=== PATIENT | female | born 1955 | race Caucasian/White ===

== ENCOUNTER → 2017-01-03 | Outpatient (CLI) | payer BC | LOC: MW.CHPM 12:56 | PROVIDERS: ATTEND Anesthesiology | DX: Z51.81 Encounter for therapeutic drug level monitoring (principal); Z79.891 Long term (current) use of opiate analgesic | CPT/HCPCS: 80305 ==

== ENCOUNTER → 2017-01-04 | Outpatient (CLI) | payer BC ==
--- NOTE | 2017-01-04 17:02 | CR ---
EXAMINATION: Cervical spine HISTORY: Pain COMPARISON: None TECHNIQUE: AP and lateral views obtained FINDINGS: There is straightening of the normal cervical lordosis, likely positional. Moderate osteop hyte formation is noted most prominent from C4 to C7. No fracture or acute osseous abnormality. The prevertebral soft tissues appear normal. IMPRESSION: Degenerative changes without acute findings.
== END ==
LOC: MW.DI 14:49 → MW.CHPM 14:49
PROVIDERS: ATTEND Anesthesiology
DX: M54.2 Cervicalgia (principal)
CPT/HCPCS: 72040; 72040-26

== ENCOUNTER → 2017-01-17 | Outpatient (CLI) | payer BC ==
--- NOTE | 2017-01-20 14:49 | MR ---
EXAM DATE: 01/17/17 PATIENT'S AGE: 61 Patient: SELINA TRACY Facility: [place], [place] Site . Site : 1955 Study: MRI Spine Thoracic [id number] 2:57:05 PM Ordering Physician: Estela Michaud Final Report: Indication: 61-year-old female with chronic back pain. Technique: Sagittal T1, sagittal and axial T2 and sagittal STIR images are obtained. Findings: The alignment of thoracic spine is within normal limits. No evidence of compression fracture. Degenerative disc changes in the lower cervical and lower thoracic spine are incidentally noted. Thoracic spinal cord appears normal in morphology and signal intensity and no evidence of an intradural or extradural mass. Incidental degenerative disc bulging at the C5-6, C6-7 and C7-T1 levels. In the lower thoracic spine at T9-10 there is broad posterior annular bulge without stenosis of the spinal canal or neural foramen. At T10-11 mild posterior disk bulging and mild facet arthropathy without stenosis of the spinal canal or neural foramen. Impression: 1. No compression fractures or paraspinal mass nor evidence of intradural pathology. 2. Incidental degenerative disk and endplate changes of the lower thoracic spine and also a lower cervical spine are noted. No high-grade stenosis or of the thoracic spine. Dictated by Jef Balbuena MD @ Jan 17 2017 3:51PM (Electronic Signature) Report Signed by Proxy and Original Signed Document filed in the Medical Record. IZZY
--- NOTE | 2017-01-20 14:50 | MR ---
EXAM DATE: 01/17/17 PATIENT'S AGE: 61 Patient: SELINA TRACY Facility: [place], [place] Site . Site : 1955 Study: MRI Spine Lumbar [id number]/13/2017 3:31:28 PM Ordering Physician: Estela Michaud Final Report: Indication: 61-year-old female with chronic low back pain. Technique: Sagittal and axial T1, sagittal and axial T2 and sagittal STIR images are obtained. Findings: Alignment of the lumbar spine within normal limits. There is no acute compression fracture. There is no paraspinal or epidural mass or hematoma. The conus medullaris appears normal and terminates normally at the L1 level. There is no disk herniation or stenosis at T11-12, T12-L1 or L1-. At L2-3 there is degenerative narrowing of the disc space with circumferential disk bulge and marginal osteophyte formation and bilateral facet arthropathy. There is resultant mild to moderate central canal spinal stenosis and there is moderate right-sided mild left side neural foraminal narrowing. There is some associated impingement of the exiting right L2 nerve root within the neural foramen. At L3-4 degenerative disc desiccation. Mild facet arthropathy no evidence of disc herniation or stenosis the spinal canal or neural foramen. At L4-5 degenerative disk desiccation. Minor annular bulging moderate bilateral facet arthropathy with bilateral facet joint effusions no evidence of stenosis of the spinal canal. In mild left-sided neural foraminal narrowing. At L5-S1 and no evidence of disc herniation or stenosis the spinal canal or neural foramen. Bilateral facet arthropathy. Impression: 1. At L2-3 there is mild to moderate central canal stenosis and right greater than left neural foraminal narrowing due to advanced disk degeneration and moderate facet arthropathy. 2. Some impingement of the exiting right L2 nerve root within the neural foramen. 3. Bilateral facet arthropathy most prominent at L4-5 and to a lesser degree L3- 4 and L2-3. Dictated by Jef Balbuena MD @ Jan 17 2017 3:51PM (Electronic Signature) Report Signed by Proxy and Original Signed Document filed in the Medical Record. IZZY
== END | disposition home or self-care (01) ==
LOC: MW.MRI 13:58
PROVIDERS: ATTEND Anesthesiology
DX: M54.5 Low back pain (principal); M19.90 Unspecified osteoarthritis, unspecified site; G89.4 Chronic pain syndrome; G57.91 Unspecified mononeuropathy of right lower limb; M53.3 Sacrococcygeal disorders, not elsewhere classified; M79.1 Myalgia; M48.06 Spinal stenosis, lumbar region; M99.83 Other biomechanical lesions of lumbar region; M51.36 Other intervertebral disc degeneration, lumbar region; M46.97 Unspecified inflammatory spondylopathy, lumbosacral region; M51.34 Other intervertebral disc degeneration, thoracic region; M50.30 Other cervical disc degeneration, unspecified cervical region
CPT/HCPCS: 72146; 72146-26; 72148; 72148-26

== ENCOUNTER 2017-01-27 12:00 | Day surgery (SDC) | payer BC ==
[2017-01-27] MEDS ORDERED: Betamethasone Acetate/Betamethasone Sod Phosphate 30 MG/5 ML MDV ONE (12:26)
[2017-01-27] MEDS ORDERED: Ropivacaine 0.5% 5 MG/ML 30 ML SDV ONE (12:26)
[2017-01-27] MEDS ORDERED: Iopamidol 408 MG/ML 50 ML SDV ONE (12:26)
[2017-01-27] MEDS ORDERED: Lidocaine 2% 5 ML SDV ONE (12:26)
--- NOTE | 2017-01-28 12:15 | OR ---
SURGEON: Keily Palmer D.O. DATE OF PROCEDURE: 01/27/2017 OR STAFF PRESENT: 1. Mary Azul RN. 2. Melanie Cartwright RN. WOUND CLASSIFICATION: I. PREOPERATIVE DIAGNOSES: 1. Multilevel degenerative disk disease. 2. Lumbar spondylosis. 3. Lumbar radiculopathy. POSTOPERATIVE DIAGNOSES: 1. Multilevel degenerative disk disease. 2. Lumbar spondylosis. 3. Lumbar radiculopathy. PROCEDURE PERFORMED: 1. Right transforaminal epidural steroid injection at L2-3. 2. Fluoroscopic guidance for needle placement. 3. Local with oral Valium for sedation. SCREENING QUESTIONS: The patient answered "no" to all of the following questions: 1. Are you allergic to iodine, Betadine or latex? 2. Do you have a bleeding disorder? 3. Do you have any joint replacements, heart valve replacements, or a pacemaker? 4. Are you allergic to anti-inflammatories or blood thinners? 5. Do you have any current local or systemic infections? MEDICAL NECESSITY: This is a patient with a history of chronic low back pain and lower extremity radicular pain in the above dermatomal pattern that comes in for the above diagnostic and therapeutic procedure. Pertinent positives and negatives for this suspected disease process along with the diagnostic findings and testing are in the patient's history and physical exam. The most salient feature includes radicular pain in the above dermatomal pattern. The patient had failed attempts at conservative therapy including physical therapy, nonsteroidal anti- inflammatory drugs, and other medications. No contraindications to perform this procedure including medical, no bleeding disorders or infections, no psychological, no antisocial personality disorder or active addiction disorder. There are no work-related issues, and, in general, the patient does not have any history of multiple prior interventions, surgeries or nerve blocks which have failed to return the patient to function. The patient's other symptoms to be treated include numbness, paresthesia, dysesthesia or hypoesthesia referred into the left lower extremity or any weakness in the involved myotome. This procedure is being performed in accordance with national guidelines as written by the [employer] Sp[employer] Intervention Society (DAV). DESCRIPTION OF PROCEDURE: The patient had the procedure thoroughly explained including risks, benefits and alternatives. Consent was signed in my clinic indicating understanding and willingness to proceed. The patient presented to [facility] where the patient was escorted to the dressing room to disrobe and change into a hospital gown. Preoperative vital signs were taken and stable. The patient reported that Valium was taken prior to the procedure. The patient was brought to the procedure room and placed in the prone position on the table. A pillow was placed under the abdomen in order to flatten the lumbar lordosis. The back was prepped with ChloraPrep and sterilely draped. All personnel in the operating room were dressed in appropriate attire including surgical scrubs, head and shoe covers. This was to ensure sterility while in the treatment room. During the time fluoroscopy was in use, all personnel in the operating room wore lead hansen with thyroid collars. Sterile technique was used during the procedure. The fluoroscope was placed for the lumbar transforaminal epidural steroid injection. There was no sign of infection at the skin site for needle insertion. The skin was anesthetized with 2% lidocaine with a 27 gauge 1-1/2 inch needle. Then a 22 gauge 3-1/2 inch spinal needle, advanced to the foramen. Under direct fluoroscopic guidance needle position was verified in three views; AP, oblique and lateral, with 0.2 cubic centimeters increments of Isovue-200 dye. No intravascular flow pattern was observed under live fluoroscopy. A total of 12 milligrams of Celestone was slowly injected after negative aspiration of heme, cerebrospinal fluid and no paresthesias were noted. The needle was cleared prior to removal from the skin. No adverse reactions were noted. The patient was brought to the recovery room awake and in good condition by my staff. The patient was monitored and discharge instructions were given after a brief stay in the recovery area. Both oral and written discharge and follow up instructions were given. The patient will follow up in the clinic in 3-4 weeks post procedure to evaluate the efficacy. The patient verbalized understanding including understanding of those signs and symptoms that would require emergency care and knows how to contact the office if there are any problems or questions in the meantime. PREOPERATIVE PAIN: 7/10. POSTOPERATIVE PAIN: 0/10. FOLLOWUP: Follow up in the Pain Clinic in 3 weeks. HOGJUDIT / CHRISTINA /[id number]
== END 2017-01-27 14:00 | disposition home or self-care (01) ==
LOC: MW.SDS 12:00
PROVIDERS: ATTEND Anesthesiology
PROC: 3E0R3BZ Introduction of Anesthetic Agent into Spinal Canal, Percutaneous Approach (ICD-10-PCS; principal; 2017-01-27)
DX: M51.16 Intervertebral disc disorders with radiculopathy, lumbar region (principal); M47.896 Other spondylosis, lumbar region; M19.90 Unspecified osteoarthritis, unspecified site; J45.909 Unspecified asthma, uncomplicated; M17.11 Unilateral primary osteoarthritis, right knee; E11.9 Type 2 diabetes mellitus without complications; M10.9 Gout, unspecified; I10 Essential (primary) hypertension; J44.9 Chronic obstructive pulmonary disease, unspecified; F32.9 Major depressive disorder, single episode, unspecified; M79.1 Myalgia; G47.33 Obstructive sleep apnea (adult) (pediatric); Z87.442 Personal history of urinary calculi; Z87.440 Personal history of urinary (tract) infections; Z87.891 Personal history of nicotine dependence; Z91.013 Allergy to seafood; Z79.891 Long term (current) use of opiate analgesic; Z79.4 Long term (current) use of insulin; Z79.84 Long term (current) use of oral hypoglycemic drugs; Z79.82 Long term (current) use of aspirin; Z79.899 Other long term (current) drug therapy; Z96.651 Presence of right artificial knee joint; Z90.49 Acquired absence of other specified parts of digestive tract; Z90.710 Acquired absence of both cervix and uterus; Z90.89 Acquired absence of other organs; Z98.890 Other specified postprocedural states
CPT/HCPCS: 64483; 64484; J0702; J2795; Q9966

== ENCOUNTER 2017-02-16 10:55 | Emergency (ER) | payer BC ==
[2017-02-16] MEDS ORDERED: Sodium Chloride 0.9% 10 ML Syringe FLUSH PRN (11:00)
[2017-02-16] MEDS ORDERED: Sodium Chloride 0.9% 2.5 ML Syringe FLUSH PRN (11:00)
--- NOTE | 2017-02-16 11:27 | EDM.PDOC ---
ED HISTORY OF PRESENT ILLNESS - General Chief Complaint: Chest Pain Stated Complaint: CHEST PAIN Time Seen by Provider: 02/16/17 10:56 Source of Information: Reports: Patient History Limitations: Reports: No limitations - History of Present Illness INITIAL COMMENTS - FREE TEXT/NARRATIVE: History of present illness: [] Patient awoke with anterior right-sided chest pain that is sharp she states "it feels like pleurisy but not". It is not related to breathing and it does come in waves as severe. She states she feels like it's hard to breathe when it happens it is overall not short of breath. She has a history of LGL but has not had any problems. Patient had a right knee replacement last October has been taking aspirin she noticed knee pain the first time today. Review of systems: As per history of present illness and below otherwise all systems reviewed and negative. Past medical history: As per history of present illness and as reviewed below otherwise noncontributory. Surgical history: As per history of present illness and as reviewed below otherwise noncontributory. Social history: No reported history of drug or alcohol abuse. Family history: As per history of present illness and as reviewed below otherwise noncontributory. Physical exam: General: Well developed, well nourished in NAD HEENT: Atraumatic, normocephalic, pupils reactive, negative for conjunctival pallor or scleral icterus, mucous membranes moist, throat clear, neck supple, nontender, trachea midline. Lungs: Clear to auscultation, breath sounds equal bilaterally, chest nontender. Heart: S1S2, regular, negative for clicks, rubs, or JVD. Abdomen: Soft, nondistended, nontender. Negative for masses or hepatosplenomegaly. Negative for costovertebral tenderness. Pelvis: Stable nontender. Genitourinary: Deferred. Rectal: Deferred. Extremities: Atraumatic, negative for cords or calf pain. Neurovascular unremarkable. Neuro: Awake, alert, oriented. Cranial nerves II through XII unremarkable. Cerebellum unremarkable. Motor and sensory unremarkable throughout. Exam nonfocal. Diagnostics: [] Labs and imaging were done she negative and PE was ruled out Therapeutics: [] She declined any pain medicine Impression: [] Pleuritic chest pain Plan: [] Continue aspirin followup with PMD return if symptoms worsen Definitive disposition and diagnosis as appropriate pending reevaluation and review of above. - Related Data Allergies/ADRs: Allergies Allergy/AdvReac Type Severity Reaction Status Date / Time hydrocodone Allergy Headache Verified 02/16/17 11:10 shellfish derived Allergy Itching Verified 02/16/17 11:10 tramadol Allergy Headache Verified 02/16/17 11:10 Home Meds: Home Meds Liraglutide [Victoza] 3 mcg SQ BRK 05/07/14 [History] Lisinopril [Zestril] 20 mg PO BEDTIME 05/07/14 [History] Omeprazole [Prilosec] 20 mg PO ACBREAKFAST 05/07/14 [History] metFORMIN HCl [Metformin HCl] 1,000 mg PO BID 05/07/14 [History] Albuterol [Ventolin HFA] 2 puff INH ASDIRECTED PRN 09/24/14 [History] Canagliflozin [Invokana] 300 mg PO ACBREAKFAST 08/29/15 [History] Magnesium Glycinate [Mag Glycinate] 100 mg PO DAILY 08/29/15 [History] Methocarbamol 750 mg PO TID PRN 08/29/15 [History] Mecobal/Levomefolat Ca/B6 Phos [Foltanx Tablet] 1 tab PO BID 09/01/15 [History] Aspirin 81 mg PO DAILY 06/16/16 [History] Ketamine [Ketalar] 50 mg IV ASDIRECTED PRN 06/16/16 [History] Diclofenac Epolamine [Flector] 1 each TD ASDIRECTED PRN 02/16/17 [History] Fluticasone/Salmeterol [Advair Diskus 250-50] 1 puff INH BID 02/16/17 [History] Glucosamine/D3/Boswellia Yulissa [Osteo Bi-Flex Caplet] 1 each PO BID 02/16/17 [ History] Lactobacillus Rhamnosus R0011 [Probiotic Digestive Care] 1 each PO DAILY [History] Melatonin 3 mg PO BEDTIME 02/16/17 [History] Multivit-Min/FA/Lycopene/Lut [Sentry Senior Tablet] 1 each PO DAILY 02/16/17 [ History] Naloxegol Oxalate [Movantik] 25 mg PO ACBREAKFAST 02/16/17 [History] Pregabalin [Lyrica] 150 mg PO BID 02/16/17 [History] buPROPion [Wellbutrin XL] 150 mg PO DAILY 02/16/17 [History] oxyCODONE 5 mg PO TID PRN 02/16/17 [History] oxyCODONE ER [OxyCONTIN] 10 mg PO BEDTIME 02/16/17 [History] Past Medical History - Past Health History Medical/Surgical History: Denies Medical/Surgical History Other HEENT History: Some diminished hearing 'especially if background noise' Cardiovascular History: Reports: Hypertension, SOB on exertion Respiratory History: Reports: SOB Gastrointestinal History: Reports: GERD Other Genitourinary History: "Crystals in urine at times" Other Musculoskeletal History: 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 Lots of muscle spasms and take Magnesum supplement to help Other Neuro History: hx: Right Carpal Tunnel Release Psychiatric History: Reports: Depression Endocrine/Metabolic History: Reports: Diabetes, type II Other Hematologic History: TAke supplements as 'think I am 'B' deficient" And take Magnesium as Chilo and Dr. Palmer recommended due to Muscle spasms, "Trouble with Hysterectomy, had 7 blood transfusions" Immunologic History: Reports: None Oncologic (Cancer) History: Reports: None - Infectious Disease History Infectious Disease History: Reports: None - Past Surgical History Head Surgeries/Procedures: Reports: None GI Surgical History: Reports: Cholecystectomy Other GI Surgeries/Procedures: Open Cholecystectomy Other Female Surgeries/Procedures: Several D&C's, hx: Endometriosis, Several Uterine ablations, Hysterectomy with large blood loose, believe received 7 transfusions Other Musculoskeletal Surgeries/Procedures:: Left knee meniscus repair Social & Family History - Family History Family Medical History: Noncontributory - Tobacco Use Smoking Status *Q: Never Smoker Years of Tobacco use: 5 Used Tobacco, but Quit: Yes Second Hand Smoke Exposure: No - Alcohol Use Days Per Week of Alcohol Use: 0 Number of Drinks Per Day: 0 Total Drinks Per Week: 0 - Recreational Drug Use Recreational Drug Use: No Drug Use in Last 12 Months: No ED ROS GENERAL - Review of Systems Review Of Systems: See Below (See history of present illness) ED EXAM, GENERAL - Physical Exam Exam: See Below (See history of present illness) Course - Vital Signs Last Recorded V/S: Last Vital Signs Temp 36.7 C 02/16/17 11:10 Pulse 87 02/16/17 12:25 Resp 16 02/16/17 12:25 BP 119/59 L 02/16/17 12:25 Pulse Ox 94 L 02/16/17 12:25 - Orders/Labs/Meds Orders: Active Orders 24 hr Category Date Time Status EKG 12 Lead [EKG Documentation Completion] [RC] STAT Care 02/16/17 11:08 Active Sodium Chloride 0.9% [Saline Flush] Med 02/16/17 11:00 Active 10 ml FLUSH ASDIRECTED PRN Sodium Chloride 0.9% [Saline Flush] Med 02/16/17 11:00 Active 2.5 ml FLUSH ASDIRECTED PRN Peripheral IV Insertion Adult [OM.PC] Stat Oth 02/16/17 11:01 Ordered Medication Orders Sodium Chloride (Saline Flush) 10 ml FLUSH ASDIRECTED PRN PRN Reason: Keep Vein Open Last Admin: 02/16/17 11:22 Dose: 10 ml Sodium Chloride (Saline Flush) 2.5 ml FLUSH ASDIRECTED PRN PRN Reason: Keep Vein Open Last Admin: 02/16/17 11:22 Dose: 2.5 ml Labs: Laboratory Tests 02/16/17 02/16/17 02/16/17 Range/Units 11:11 11:11 11:11 WBC 7.19 (4.0-11.0) K/uL RBC 4.54 (4.30-5.90) M/uL Hgb 13.6 (12.0-16.0) g/dL Hct 43.4 (36.0-46.0) % MCV 95.6 (80.0-98.0) fL MCH 30.0 (27.0-32.0) pg MCHC 31.3 (31.0-37.0) g/dL RDW Std Deviation 50.9 (28.0-62.0) fl RDW Coeff of Elida 15 (11.0-15.0) % Plt Count 281 (150-400) K/uL MPV 10.80 (7.40-12.00) fL Neut % (Auto) 55.4 (48.0-80.0) % Lymph % (Auto) 24.2 (16.0-40.0) % [place] % (Auto) 8.8 (0.0-15.0) % Eos % (Auto) 11.0 H (0.0-7.0) % Baso % (Auto) 0.6 (0.0-1.5) % Neut # (Auto) 4.0 (1.4-5.7) K/uL Lymph # (Auto) 1.7 (0.6-2.4) K/uL [place] # (Auto) 0.6 (0.0-0.8) K/uL Eos # (Auto) 0.8 H (0.0-0.7) K/uL Baso # (Auto) 0.0 (0.0-0.1) K/uL Nucleated RBC % 0.0 /100WBC Nucleated RBCs # 0 K/uL D-Dimer, Quantitative 2.85 H (0.0-0.52) mg/LFEU Sodium 142 (136-146) mmol/L Potassium 4.0 (3.5-5.1) mmol/L Chloride 105 (98-110) mmol/L Carbon Dioxide 25 (21-31) mmol/L BUN 16 (6.0-23.0) mg/dL Creatinine 0.8 (0.6-1.5) mg/dL Est Cr Clr Drug Dosing 67.29 mL/min Estimated GFR (MDRD) > 60.0 ml/min Glucose 193 H (60-110) mg/dL Calcium 9.4 (8.8-10.8) mg/dL Total Bilirubin 0.5 (0.1-1.5) mg/dL AST 19 (5-40) IU/L ALT 25 (8-54) IU/L Alkaline Phosphatase 84 (40-150) Troponin I (0.0-0.29) NG/ML Total Protein 6.9 (6.0-8.0) g/dL Albumin 4.0 (3.4-4.8) g/dL Globulin 2.9 (2.0-3.5) g/dL Albumin/Globulin Ratio 1.4 (1.3-2.8) 02/16/17 Range/Units 11:11 WBC (4.0-11.0) K/uL RBC (4.30-5.90) M/uL Hgb (12.0-16.0) g/dL Hct (36.0-46.0) % MCV (80.0-98.0) fL MCH (27.0-32.0) pg MCHC (31.0-37.0) g/dL RDW Std Deviation (28.0-62.0) fl RDW Coeff of Elida (11.0-15.0) % Plt Count (150-400) K/uL MPV (7.40-12.00) fL Neut % (Auto) (48.0-80.0) % Lymph % (Auto) (16.0-40.0) % [place] % (Auto) (0.0-15.0) % Eos % (Auto) (0.0-7.0) % Baso % (Auto) (0.0-1.5) % Neut # (Auto) (1.4-5.7) K/uL Lymph # (Auto) (0.6-2.4) K/uL [place] # (Auto) (0.0-0.8) K/uL Eos # (Auto) (0.0-0.7) K/uL Baso # (Auto) (0.0-0.1) K/uL Nucleated RBC % /100WBC Nucleated RBCs # K/uL D-Dimer, Quantitative (0.0-0.52) mg/LFEU Sodium (136-146) mmol/L Potassium (3.5-5.1) mmol/L Chloride (98-110) mmol/L Carbon Dioxide (21-31) mmol/L BUN (6.0-23.0) mg/dL Creatinine (0.6-1.5) mg/dL Est Cr Clr Drug Dosing mL/min Estimated GFR (MDRD) ml/min Glucose (60-110) mg/dL Calcium (8.8-10.8) mg/dL Total Bilirubin (0.1-1.5) mg/dL AST (5-40) IU/L ALT (8-54) IU/L Alkaline Phosphatase (40-150) Troponin I < 0.10 (0.0-0.29) NG/ML Total Protein (6.0-8.0) g/dL Albumin (3.4-4.8) g/dL Globulin (2.0-3.5) g/dL Albumin/Globulin Ratio (1.3-2.8) Meds: Medications Generic Name Dose Route Start Last Admin Trade Name Freq PRN Reason Stop Dose Admin Sodium Chloride 10 ml 02/16/17 11:00 02/16/17 11:22 Saline Flush FLUSH 10 ml ASDIRECTED PRN Administration Keep Vein Open Sodium Chloride 2.5 ml 02/16/17 11:00 02/16/17 11:22 Saline Flush FLUSH 2.5 ml ASDIRECTED PRN Administration Keep Vein Open Discontinued Medications Generic Name Dose Route Start Last Admin Trade Name Freq PRN Reason Stop Dose Admin Iopamidol 50 ml 02/16/17 12:37 02/16/17 12:40 Isovue Multipack-370 (76%) IVPUSH 02/16/17 12:38 50 ml ONETIME STA Administration Departure - Departure Time of Disposition: 13:33 Disposition: Home, Self-Care 01 Condition: good Clinical Impression: Pleuritic chest pain Forms: ED Department Discharge Additional Instructions: The following information is given to patients seen in the emergency department who are being discharged to home. This information is to outline your options for follow-up care. We provide all patients seen in our emergency department with a follow-up referral. The need for follow-up, as well as the timing and circumstances, are variable depending upon the specifics of your emergency department visit. If you don't have a primary care physician on staff, we will provide you with a referral. We always advise you to contact your personal physician following an emergency department visit to inform them of the circumstance of the visit and for follow-up with them and/or the need for any referrals to a consulting specialist. The emergency department will also refer you to a specialist when appropriate. This referral assures that you have the opportunity for follow-up care with a specialist. All of these measure are taken in an effort to provide you with optimal care, which includes your follow-up. Under all circumstances we always encourage you to contact your private physician who remains a resource for coordinating your care. When calling for follow-up care, please make the office aware that this follow-up is from your recent emergency room visit. If for any reason you are refused follow-up, please contact the [facility] Department at and asked to speak to the emergency department charge nurse. Continue aspirin [facility] [address] [place], [place] [id number] - My Orders Last 24 Hours: My Active Orders 02/16/17 11:00 Sodium Chloride 0.9% [Saline Flush] 10 ml FLUSH ASDIRECTED PRN Sodium Chloride 0.9% [Saline Flush] 2.5 ml FLUSH ASDIRECTED PRN 02/16/17 11:01 Peripheral IV Insertion Adult [OM.PC] Stat 02/16/17 11:08 EKG 12 Lead [EKG Documentation Completion] [RC] STAT - Assessment/Plan Last 24 Hours: My Active Orders 02/16/17 11:00 Sodium Chloride 0.9% [Saline Flush] 10 ml FLUSH ASDIRECTED PRN Sodium Chloride 0.9% [Saline Flush] 2.5 ml FLUSH ASDIRECTED PRN 02/16/17 11:01 Peripheral IV Insertion Adult [OM.PC] Stat 02/16/17 11:08 EKG 12 Lead [EKG Documentation Completion] [RC] STAT
[2017-02-16 11:57] LABS: CHLORIDE,CL 105 mmol/L (98-110); SODIUM,NA 142 mmol/L (136-146)
[2017-02-16] MEDS ORDERED: Iopamidol 755 MG/ML 500 ML Multipack Bottle IVPUSH STA (12:37)
--- NOTE | 2017-02-16 13:22 | CT ---
EXAMINATION: CTA chest HISTORY: Chest pain COMPARISON: None TECHNIQUE: Axial CT images obtained through the chest following the administration of 50 mL of Isovu e-370. Coronal and sagittal reconstructions obtained. FINDINGS: The lungs are clear without focal consolidation. No pleural effusion or pneumothorax. The heart is normal in size without a pericardial effusion. The thoracic aorta is normal in caliber. Marlyn n and central pulmonary veins are patent without evidence of a pulmonary embolism. The central airwa ys are clear. No mediastinal, hilar, or axillary lymphadenopathy. The central airways are clear. The visualized osseous structures appear normal. IMPRESSION: 1. No acute cardiopulmonary findings.
[2017-02-16 14:00] VITALS: BP 118/65
== END 2017-02-16 14:01 | disposition home or self-care (01) ==
LOC: MW.ED 10:55
DX: R07.81 Pleurodynia (principal); I10 Essential (primary) hypertension; K21.9 Gastro-esophageal reflux disease without esophagitis; M19.90 Unspecified osteoarthritis, unspecified site; E11.9 Type 2 diabetes mellitus without complications; F32.9 Major depressive disorder, single episode, unspecified; Z90.49 Acquired absence of other specified parts of digestive tract; Z79.899 Other long term (current) drug therapy; Z79.82 Long term (current) use of aspirin; Z79.84 Long term (current) use of oral hypoglycemic drugs; Z91.013 Allergy to seafood; Z88.5 Allergy status to narcotic agent; M54.5 Low back pain; M47.816 Spondylosis without myelopathy or radiculopathy, lumbar region
CPT/HCPCS: 36415; 71275; 72110; 80053; 84484; 85025; 85379; 93005; 99285; Q9967; 99284

== ENCOUNTER → 2017-02-16 | Outpatient (CLI) | payer BC ==
--- NOTE | 2017-02-16 17:19 | CR ---
EXAMINATION: Lumbar spine HISTORY: Low back pain COMPARISON: MRI dated 01/17/2017 TECHNIQUE: AP, lateral, flexion and extension images. FINDINGS: There is a trace anterolisthesis of L4 on L5. Moderate disc space narrowing is noted at L2 -L3. Bone mineralization is normal. There is mild anterolisthesis of L4 on L5 most notable with flex ion. Facet hypertrophy is noted. SI joints are symmetric. No fracture or acute osseous abnormality. IMPRESSION: Moderate degenerative changes noted within the lumbar spine without acute findings.
== END ==
LOC: MW.DI 14:17
PROVIDERS: ATTEND Neurological Surgery
DX: M54.5 Low back pain (principal); M47.816 Spondylosis without myelopathy or radiculopathy, lumbar region
CPT/HCPCS: 72110; 72110-26

== ENCOUNTER → 2017-02-17 | Outpatient (CLI) | payer BC | END | disposition home or self-care (01) | LOC: MW.CHPM 09:45 | PROVIDERS: ATTEND Anesthesiology | DX: Z51.81 Encounter for therapeutic drug level monitoring (principal); Z79.891 Long term (current) use of opiate analgesic | CPT/HCPCS: 80305 ==

== ENCOUNTER 2017-02-24 11:08 | Day surgery (SDC) | payer BC ==
[~2017-02-24 11:08] MED LIST: Betamethasone Acetate/Betamethasone Sod Phosphate 30 MG/5 ML MDV ONE; Iopamidol 408 MG/ML 50 ML SDV ONE; Lidocaine 2% 5 ML SDV ONE; Ropivacaine 0.5% 5 MG/ML 30 ML SDV ONE
--- NOTE | 2017-02-25 06:05 | OR ---
SURGEON: Keily Palmer D.O. DATE OF PROCEDURE: 02/24/2017 OR STAFF PRESENT: 1. Mary Hardy RN. 2. Comfort Gallagher RN. WOUND CLASSIFICATION: I. PREOPERATIVE DIAGNOSES: 1. Lumbar spondylosis. 2. Chronic low pain. 3. Lumbar spinal stenosis. 4. Lumbar spondylolisthesis. POSTOPERATIVE DIAGNOSES: 1. Lumbar spondylosis. 2. Chronic low pain. 3. Lumbar spinal stenosis. 4. Lumbar spondylolisthesis. PROCEDURE PERFORMED: 1. Bilateral L5 radiofrequency neurotomy. 2. Fluoroscopic guidance for needle placement. 3. Local with oral Valium for sedation. JOINTS FOR RADIOFREQUENCY ABLATION: L5-S1 zygapophyseal joint. SCREENING QUESTIONS: The patient answered "No" to all the followin. Are you allergic to iodine, Betadine or latex? 2. Do have a bleeding disorder? 3. Are you on any anti-inflammatories or blood thinners? 4. Do you have any current local or systemic infections? RESPONSE TO LAST PROCEDURE: The patient reports greater than 80-90% pain reduction lasting the duration of the previous diagnostic medial branch blocks. MEDICAL NECESSITY: This procedure is being performed in accordance with the national guidelines as written by the DAV, [employer]. Please see medical necessity note attached. DESCRIPTION OF PROCEDURE: The patient had the procedure thoroughly explained including all possible risks, benefits and alternatives. A consent was signed in my clinic indicating understanding and willingness to proceed. The patient presented to [facility] and was escorted to the dressing room to disrobe and change into a hospital gown. Preoperative vital signs were taken. The patient reported taking Valium 10 milligrams at home prior to the procedure. The patient was brought to the procedure room and placed in the prone position on the procedure room table. A pillow was placed under the hips in order to flatten the lumbar lordosis. The back was prepped with ChloraPrep times three and sterilely draped. All personnel in the operating room were dressed in appropriate attire including surgical scrubs, head and shoe covers. This was to ensure sterility while in the treatment room. During the time fluoroscopy was in use all personnel in the operating room wore lead hansen with thyroid collars. Sterile technique was used during the procedure. The skin overlying the target nerves were anesthetized with 2% Lidocaine Preservative-Free in a sterile 27-gauge 1.5 inch needle. The deep tissues were likewise infiltrated. Standard insulated radiofrequency probe needles with 10 millimeter active tips were inserted at the appropriate sites for the left L5 dorsal ramus nerves and right L5 dorsal ramus nerves for radiofrequency ablation. Proper placement was determined both fluoroscopically and with test stimulation at each primary site with 50 hertz for sensory and 2 hertz for motor stimulation. No radicular stimulation was identified and no distal motor activity was noted in the lower extremities. Radiofrequency denervation was performed at each site for 60 seconds at 80 degrees centigrade and repeated times two. The patient's nerves were numbed with a mixture of 12 milligrams of Celestone and 3 cubic centimeters of 2% Lidocaine and 3 cubic centimeters of 0.5% Ropivacaine. This was done for patient comfort prior to lesioning; 1 cubic centimeter total was injected at each site. Then the radiofrequency ablation needles were advanced under direct fluoroscopy and viewed in AP and oblique views. Each nerve was lesioned twice. The patient tolerated the procedure well and had no complications. The vital signs were stable during and after the procedure. The staff escorted the patient to the recovery room area and the patient was released in stable condition after a brief stay in the recovery room monitored by the nurse. The patient was given both oral and written discharge and follow up instructions. The patient understands and knows to contact the office if there are any questions or concerns in the meantime. The patient has an appointment to follow up in three weeks. JOSUE / CHRISTINA /[id number] IZZY
== END 2017-02-24 13:30 | disposition home or self-care (01) ==
LOC: MW.SDS 11:08
PROVIDERS: ATTEND Anesthesiology
DX: M47.896 Other spondylosis, lumbar region (principal); M48.06 Spinal stenosis, lumbar region; M43.16 Spondylolisthesis, lumbar region; M19.90 Unspecified osteoarthritis, unspecified site; J45.909 Unspecified asthma, uncomplicated; M17.11 Unilateral primary osteoarthritis, right knee; E11.9 Type 2 diabetes mellitus without complications; K21.9 Gastro-esophageal reflux disease without esophagitis; M10.9 Gout, unspecified; I10 Essential (primary) hypertension; M51.16 Intervertebral disc disorders with radiculopathy, lumbar region; M79.1 Myalgia; G89.4 Chronic pain syndrome; G47.33 Obstructive sleep apnea (adult) (pediatric); J44.9 Chronic obstructive pulmonary disease, unspecified; F41.9 Anxiety disorder, unspecified; F32.9 Major depressive disorder, single episode, unspecified; Z87.440 Personal history of urinary (tract) infections; Z87.442 Personal history of urinary calculi; Z87.891 Personal history of nicotine dependence; Z91.013 Allergy to seafood; Z79.82 Long term (current) use of aspirin; Z79.84 Long term (current) use of oral hypoglycemic drugs; Z79.4 Long term (current) use of insulin; Z79.891 Long term (current) use of opiate analgesic; Z79.899 Other long term (current) drug therapy; Z98.890 Other specified postprocedural states; Z90.49 Acquired absence of other specified parts of digestive tract; Z90.710 Acquired absence of both cervix and uterus
CPT/HCPCS: 64635; J0702; J2795; Q9966

== ENCOUNTER 2017-08-19 14:10 | Emergency (ER) | payer BC ==
[2017-08-19 14:28] VITALS: BP 137/74
[2017-08-19] MEDS ORDERED: LORazepam 2 MG/ML MDV IVPUSH ONE (14:38)
[2017-08-19] MEDS ORDERED: Sodium Chloride 0.9% 1,000 ML IV ONE (14:38)
[2017-08-19] MEDS ORDERED: Ondansetron 4 MG/2 ML SDV IVPUSH ONE (14:38)
--- NOTE | 2017-08-19 14:50 | EDM.PDOC ---
ED HPI GENERAL MEDICAL PROBLEM - General Chief Complaint: Neuro Symptoms/Deficits Stated Complaint: DIZZINESS Time Seen by Provider: 08/19/17 14:24 Source of Information: Reports: Patient History Limitations: Reports: No Limitations - History of Present Illness INITIAL COMMENTS - FREE TEXT/NARRATIVE: HISTORY AND PHYSICAL: History of present illness: Patient is a 62-year-old female presents to the emergency room today with complaints of dizziness and feeling of "detached arm and leg" on the right side. Patient reports that she saw Dr. Bowman yesterday for a cervical trigger point injection for pain management and headache management. She has a long-standing history of back problems which included multiple surgeries and interventions. Yesterday after receiving her injection, she was able to go home and felt well. She woke up this morning and started having a heaviness sensation to her right arm and leg, stating she is able to use it and she is fully functioning but "I just feel detached". No weakness, slurred speech or neurological deficits. States that "I feel like I'm having an anxiety attack and this is causing my symptoms. I've had a similar episode like this in the past where I felt dizzy and out of my body". Patient states that she does have a past medical history of anxiety and has taken an unknown medication for this in the past, but nothing within the last few years. Patient denies any headache , shortness breath, chest pain, nausea or vomiting. Patient is fully ambulatory and steady on her feet. Dizziness is described as feeling like the room is spinning. She states it improves when her eyes are closed. Denies any feeling of near syncope. No nausea , vomiting, or headache. Not associated with positional changes. Steady of her feet with ambulation. Review of systems: As per history of present illness and below otherwise all systems reviewed and negative. Past medical history: As per history of present illness and as reviewed below otherwise noncontributory. Surgical history: As per history of present illness and as reviewed below otherwise noncontributory. Social history: No reported history of drug or alcohol abuse. Family history: As per history of present illness and as reviewed below otherwise noncontributory. Physical exam: General: Nontoxic appearing 62 year old female. Breathes easily. Alert and Orientated. HEENT: Atraumatic, normocephalic, pupils reactive, negative for conjunctival pallor or scleral icterus, mucous membranes moist, throat clear, neck supple, nontender, trachea midline. No nystagmus. No tinninitus> Her vision is intact. TM clear bilaterally. Lungs: Clear to auscultation, breath sounds equal bilaterally, chest nontender. Heart: S1S2, regular, negative for clicks, rubs, or JVD. Abdomen: Soft, nondistended, nontender. Negative for masses or hepatosplenomegaly. Negative for costovertebral tenderness. Pelvis: Stable nontender. Genitourinary: Deferred. Rectal: Deferred. Extremities: Atraumatic, negative for cords or calf pain. Neurovascular unremarkable. Neuro: Awake, alert, oriented. Cranial nerves II through XII unremarkable. Cerebellum unremarkable. Motor and sensory unremarkable throughout. Exam nonfocal. I contacted Dr. Bowman to discuss this case. Dr. Bowman stated she actually physically assessed the patient prior to her arrival to the emergency department. She does not feel that her symptoms are at all related to the injection she received yesterday. After patient received IV fluid, Ativan and Zofran a should states she did not notice any change in her symptoms. I will proceed and give her some meclizine. Orthostatic vital signs are appropriate. Currently waiting on the head CT results. Head CT results are normal. Patient states she is still concerned about the paresthesias that she is experiencing in her right arm. I did offer the patient admission which she declined. Risks of her leaving without the admission were explained to her, patient and family members at bedside voice understanding. Patient reports that if her symptoms worsen she will return to the emergency room. will be driving patient home today. Will give patient a prescription for the meclizine. Informed patient that she should follow-up with her primary care provider in the next 1-2 days. If she continues to have the paresthesia symptoms she may want to consider getting an MRI or following up with neurology. Patient is agreeable to plan of care and denies any further questions at this time. White count is 17,000 and noted. this is likely due to a secondary response to the steriod injection. No sign of ear infection, pneumonia, denies any abdominal pain, urinalysis is within normal limits. Diagnostics: Head CT, CBC, CMP, troponin, orthostatic vital signs, EKG Therapeutics: IV fluid, Ativan, Zofran Impression: Paresthesia Dizziness Plan: 1. Please take the meclizine as prescribed. This medication may cause some drowsiness said do not take it with any other medications such as your pain medication or muscle relaxers. 2. Make sure you are plenty hydrated. 3. Follow up with your primary care provider as we discussed. Return to the ED as needed as discussed. Definitive disposition and diagnosis as appropriate pending reevaluation and review of above. - Related Data Allergies Allergy/AdvReac Type Severity Reaction Status Date / Time hydrocodone Allergy Headache Verified 08/19/17 14:23 shellfish derived Allergy Itching Verified 08/19/17 14:23 tramadol Allergy Headache Verified 08/19/17 14:23 Home Meds: Home Meds Liraglutide [Victoza] 3 mcg SQ BRK 05/07/14 [History] Lisinopril [Zestril] 20 mg PO BEDTIME 05/07/14 [History] Omeprazole [Prilosec] 20 mg PO ACBREAKFAST 05/07/14 [History] metFORMIN HCl [Metformin HCl] 1,000 mg PO BID 05/07/14 [History] Albuterol [Ventolin HFA] 2 puff INH ASDIRECTED PRN 09/24/14 [History] Canagliflozin [Invokana] 300 mg PO ACBREAKFAST 08/29/15 [History] Magnesium Glycinate [Mag Glycinate] 100 mg PO DAILY 08/29/15 [History] Methocarbamol 750 mg PO TID PRN 08/29/15 [History] Mecobal/Levomefolat Ca/B6 Phos [Foltanx Tablet] 1 tab PO BID 09/01/15 [History] Aspirin 81 mg PO DAILY 06/16/16 [History] Ketamine [Ketalar] 50 mg IV ASDIRECTED PRN 06/16/16 [History] Diclofenac Epolamine [Flector] 1 each TD ASDIRECTED PRN 02/16/17 [History] Fluticasone/Salmeterol [Advair Diskus 250-50] 1 puff INH BID 02/16/17 [History] Glucosamine/D3/Boswellia Yulissa [Osteo Bi-Flex Caplet] 1 each PO BID 02/16/17 [ History] Lactobacillus Rhamnosus R0011 [Probiotic Digestive Care] 1 each PO DAILY [History] Melatonin 3 mg PO BEDTIME 02/16/17 [History] Multivit-Min/FA/Lycopene/Lut [Sentry Senior Tablet] 1 each PO DAILY 02/16/17 [ History] Naloxegol Oxalate [Movantik] 25 mg PO ACBREAKFAST 02/16/17 [History] Pregabalin [Lyrica] 150 mg PO BID 02/16/17 [History] buPROPion [Wellbutrin XL] 150 mg PO DAILY 02/16/17 [History] oxyCODONE 5 mg PO TID PRN 02/16/17 [History] oxyCODONE ER [OxyCONTIN] 10 mg PO BEDTIME 02/16/17 [History] Past Medical History - Past Health History Medical/Surgical History: Denies Medical/Surgical History Other HEENT History: Some diminished hearing 'especially if background noise' Cardiovascular History: Reports: Hypertension, SOB on Exertion Respiratory History: Reports: SOB Gastrointestinal History: Reports: GERD Other Genitourinary History: "Crystals in urine at times" 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 Lots of muscle spasms and take Magnesum supplement to help Other Neuro History: hx: Right Carpal Tunnel Release Psychiatric History: Reports: Depression Endocrine/Metabolic History: Reports: Diabetes, Type II Other Hematologic History: TAke supplements as 'think I am 'B' deficient" And take Magnesium as Pete Palmer recommended due to Muscle spasms, "Trouble with Hysterectomy, had 7 blood transfusions" Immunologic History: Reports: None Oncologic (Cancer) History: Reports: None - Infectious Disease History Infectious Disease History: Reports: None - Past Surgical History Head Surgeries/Procedures: Reports: None GI Surgical History: Reports: Cholecystectomy Other GI Surgeries/Procedures: Open Cholecystectomy Other Female Surgeries/Procedures: Several D&C's, hx: Endometriosis, Several Uterine ablations, Hysterectomy with large blood loose, believe received 7 transfusions Neurological Surgical History: Reports: Spinal Fusion Other Musculoskeletal Surgeries/Procedures:: Left knee meniscus repair Social & Family History - Family History Family Medical History: Noncontributory Neurological: Reports: CVA - Tobacco Use Smoking Status *Q: Never Smoker Years of Tobacco use: 5 Used Tobacco, but Quit: Yes Second Hand Smoke Exposure: No - Alcohol Use Days Per Week of Alcohol Use: 0 Number of Drinks Per Day: 0 Total Drinks Per Week: 0 - Recreational Drug Use Recreational Drug Use: No Drug Use in Last 12 Months: No ED ROS GENERAL - Review of Systems Review Of Systems: ROS reveals no pertinent complaints other than HPI. ED EXAM, NEURO - Physical Exam Exam: See Below (See dictation) Course - Vital Signs Last Recorded V/S: Last Vital Signs Temp 36.6 C 08/19/17 14:10 Pulse 101 H 08/19/17 14:10 Resp 18 08/19/17 14:10 BP 137/74 08/19/17 14:10 Pulse Ox 95 08/19/17 14:10 Orthostatic Blood Pressure [ 147/79 Standing] Orthostatic Blood Pressure [ 129/53 Supine] - Orders/Labs/Meds Orders: Active Orders 24 hr Category Date Time Status EKG Documentation Completion [RC] STAT Care 08/19/17 14:38 Active Orthostatic Vital Signs [RC] ASDIRECTED Care 08/19/17 14:38 Active Labs: Laboratory Tests 08/19/17 08/19/17 08/19/17 Range/Units 14:21 14:35 14:35 WBC 17.84 H (4.0-11.0) K/uL RBC 4.99 (4.30-5.90) M/uL Hgb 12.7 (12.0-16.0) g/dL Hct 41.4 (36.0-46.0) % MCV 83.0 (80.0-98.0) fL MCH 25.5 L (27.0-32.0) pg MCHC 30.7 L (31.0-37.0) g/dL RDW Std Deviation 58.5 (28.0-62.0) fl RDW Coeff of Elida 20 H (11.0-15.0) % Plt Count 567 H (150-400) K/uL MPV 10.30 (7.40-12.00) fL Neut % (Auto) 77.7 (48.0-80.0) % Lymph % (Auto) 13.0 L (16.0-40.0) % Mcdonald % (Auto) 9.0 (0.0-15.0) % Eos % (Auto) 0.1 (0.0-7.0) % Baso % (Auto) 0.2 (0.0-1.5) % Neut # (Auto) 13.9 H (1.4-5.7) K/uL Lymph # (Auto) 2.3 (0.6-2.4) K/uL Mcdonald # (Auto) 1.6 H (0.0-0.8) K/uL Eos # (Auto) 0.0 (0.0-0.7) K/uL Baso # (Auto) 0.0 (0.0-0.1) K/uL Nucleated RBC % 0.0 /100WBC Nucleated RBCs # 0 K/uL Sodium 136 (136-146) mmol/L Potassium 5.1 (3.5-5.1) mmol/L Chloride 100 (98-110) mmol/L Carbon Dioxide 23 (21-31) mmol/L BUN 29 H (6.0-23.0) mg/dL Creatinine 0.9 (0.6-1.5) mg/dL Est Cr Clr Drug Dosing TNP Estimated GFR (MDRD) > 60.0 ml/min Glucose 188 H (60-110) mg/dL POC Glucose 176 H (60-110) mg/dL Calcium 9.7 (8.8-10.8) mg/dL Total Bilirubin 0.4 (0.1-1.5) mg/dL AST 26 (5-40) IU/L ALT 19 (8-54) IU/L Alkaline Phosphatase 118 (40-150) Troponin I (0.0-0.29) NG/ML Total Protein 8.0 (6.0-8.0) g/dL Albumin 4.3 (3.4-4.8) g/dL Globulin 3.7 H (2.0-3.5) g/dL Albumin/Globulin Ratio 1.2 L (1.3-2.8) Urine Color Urine Appearance Urine pH (5.0-8.0) Ur Specific [place] (1.001-1.035) Urine Protein (NEGATIVE) mg/dL Urine Glucose (UA) (NEGATIVE) mg/dL Urine Ketones (NEGATIVE) mg/dL Urine Occult Blood (NEGATIVE) Urine Nitrite (NEGATIVE) Urine Bilirubin (NEGATIVE) Urine Urobilinogen (<2.0) EU/dL Ur Leukocyte Esterase (NEGATIVE) Urine RBC (0-2/HPF) Urine WBC (0-5/HPF) Ur Epithelial Cells (NONE-FEW) Urine Bacteria (NEGATIVE) 08/19/17 08/19/17 Range/Units 14:35 15:11 WBC (4.0-11.0) K/uL RBC (4.30-5.90) M/uL Hgb (12.0-16.0) g/dL Hct (36.0-46.0) % MCV (80.0-98.0) fL MCH (27.0-32.0) pg MCHC (31.0-37.0) g/dL RDW Std Deviation (28.0-62.0) fl RDW Coeff of Elida (11.0-15.0) % Plt Count (150-400) K/uL MPV (7.40-12.00) fL Neut % (Auto) (48.0-80.0) % Lymph % (Auto) (16.0-40.0) % Mcdonald % (Auto) (0.0-15.0) % Eos % (Auto) (0.0-7.0) % Baso % (Auto) (0.0-1.5) % Neut # (Auto) (1.4-5.7) K/uL Lymph # (Auto) (0.6-2.4) K/uL Mcdonald # (Auto) (0.0-0.8) K/uL Eos # (Auto) (0.0-0.7) K/uL Baso # (Auto) (0.0-0.1) K/uL Nucleated RBC % /100WBC Nucleated RBCs # K/uL Sodium (136-146) mmol/L Potassium (3.5-5.1) mmol/L Chloride (98-110) mmol/L Carbon Dioxide (21-31) mmol/L BUN (6.0-23.0) mg/dL Creatinine (0.6-1.5) mg/dL Est Cr Clr Drug Dosing Estimated GFR (MDRD) ml/min Glucose (60-110) mg/dL POC Glucose (60-110) mg/dL Calcium (8.8-10.8) mg/dL Total Bilirubin (0.1-1.5) mg/dL AST (5-40) IU/L ALT (8-54) IU/L Alkaline Phosphatase (40-150) Troponin I < 0.10 (0.0-0.29) NG/ML Total Protein (6.0-8.0) g/dL Albumin (3.4-4.8) g/dL Globulin (2.0-3.5) g/dL Albumin/Globulin Ratio (1.3-2.8) Urine Color YELLOW Urine Appearance CLEAR Urine pH 6.0 (5.0-8.0) Ur Specific [place] 1.010 (1.001-1.035) Urine Protein NEGATIVE (NEGATIVE) mg/dL Urine Glucose (UA) >=1000 (NEGATIVE) mg/dL Urine Ketones NEGATIVE (NEGATIVE) mg/dL Urine Occult Blood NEGATIVE (NEGATIVE) Urine Nitrite NEGATIVE (NEGATIVE) Urine Bilirubin NEGATIVE (NEGATIVE) Urine Urobilinogen 0.2 (<2.0) EU/dL Ur Leukocyte Esterase NEGATIVE (NEGATIVE) Urine RBC 0-1 (0-2/HPF) Urine WBC 0-2 (0-5/HPF) Ur Epithelial Cells OCCASIONAL (NONE-FEW) Urine Bacteria FEW (NEGATIVE) Meds: Medications Discontinued Medications Generic Name Dose Route Start Last Admin Trade Name Herbertq PRN Reason Stop Dose Admin Sodium Chloride 1,000 mls @ 999 mls/hr 08/19/17 14:38 08/19/17 14:51 Normal Saline IV 08/19/17 15:38 999 mls/hr STAT ONE Administration Lorazepam 0.5 mg 08/19/17 14:38 08/19/17 14:52 Ativan IVPUSH 08/19/17 14:39 0.5 mg ONETIME ONE Administration Meclizine HCl 25 mg 08/19/17 15:40 08/19/17 15:48 Antivert PO 08/19/17 15:41 25 mg ONETIME ONE Administration Ondansetron HCl 4 mg 08/19/17 14:38 08/19/17 14:52 Zofran IVPUSH 08/19/17 14:39 4 mg ONETIME ONE Administration Departure - Departure Time of Disposition: 16:38 Disposition: Home, Self-Care 01 Clinical Impression: Paresthesia, Dizziness - Discharge Information Referrals: PCP,Unknown [Primary Care Provider] - Forms: ED Department Discharge Additional Instructions: My general discharge The following information is given to patients seen in the emergency department who are being discharged to home. This information is to outline your options for follow-up care. We provide all patients seen in our emergency department with a follow-up referral. The need for follow-up, as well as the timing and circumstances, are variable depending upon the specifics of your emergency department visit. If you don't have a primary care physician on staff, we will provide you with a referral. We always advise you to contact your personal physician following an emergency department visit to inform them of the circumstance of the visit and for follow-up with them and/or the need for any referrals to a consulting specialist. The emergency department will also refer you to a specialist when appropriate. This referral assures that you have the opportunity for follow-up care with a specialist. All of these measure are taken in an effort to provide you with optimal care, which includes your follow-up. Under all circumstances we always encourage you to contact your private physician who remains a resource for coordinating your care. When calling for follow-up care, please make the office aware that this follow-up is from your recent emergency room visit. If for any reason you are refused follow-up, please contact the [facility] Emergency Department at and asked to speak to the emergency department charge nurse. [facility] [address] [place] [id number] [facility] Specialty Care - Neurology Professional [address], [address] [place] [address] 1. Please take the meclizine as prescribed. This medication may cause some drowsiness said do not take it with any other medications such as your pain medication or muscle relaxers. 2. Make sure you are plenty hydrated. 3. Follow up with your primary care provider as we discussed. You may want to consider following up with neurology as we discussed. Return to the ED as needed as discussed. - My Orders Last 24 Hours: My Active Orders 08/19/17 14:38 EKG Documentation Completion [RC] STAT Orthostatic Vital Signs [RC] ASDIRECTED - Assessment/Plan Last 24 Hours: My Active Orders 08/19/17 14:38 EKG Documentation Completion [RC] STAT Orthostatic Vital Signs [RC] ASDIRECTED
[2017-08-19 15:11] LABS: CHLORIDE,CL 100 mmol/L (98-110); SODIUM,NA 136 mmol/L (136-146)
--- NOTE | 2017-08-19 15:37 | CR ---
EXAMINATION: Portable chest radiograph. HISTORY: Numbness. FINDINGS: The trachea is midline. The cardiomediastinal silhouette is within normal limits. No pulmonary infilt rates, effusions or pneumothorax. Osseous structures appear unremarkable. IMPRESSION: No acute cardiopulmonary process.
[2017-08-19] MEDS ORDERED: Meclizine 25 MG Tab PO ONE (15:40)
--- NOTE | 2017-08-19 15:40 | CT ---
EXAMINATION: Non contrast CT head. Coronal and sagittal reformats. HISTORY: Numbness FINDINGS: No evidence of intra or extra axial hemorrhage, mass, midline shift, hydrocephalus or edema. No hypoattenuation changes in the major vascular territories to suggest acute infarct. No abnormal intracranial calcifications are detected. No evidence of substantial vascular calcificat ions. Paranasal sinuses and mastoid air cells are well aerated without substantial findings. Orbits and gl obes appear symmetric. Pituitary fossa appears unremarkable. Calvarium is intact. No evidence of skull fracture. IMPRESSION: No acute intracranial findings.
== END 2017-08-19 16:56 | disposition home or self-care (01) ==
LOC: MW.ED 14:10
DX: R42 Dizziness and giddiness (principal); R20.2 Paresthesia of skin; I10 Essential (primary) hypertension; K21.9 Gastro-esophageal reflux disease without esophagitis; F32.9 Major depressive disorder, single episode, unspecified; E11.9 Type 2 diabetes mellitus without complications; Z88.5 Allergy status to narcotic agent; Z91.013 Allergy to seafood; Z79.84 Long term (current) use of oral hypoglycemic drugs; Z79.82 Long term (current) use of aspirin; Z79.899 Other long term (current) drug therapy
CPT/HCPCS: 70450; 71010; 80053; 81001; 82962; 84484; 85025; 93005; 96361; 96374; 96375; 99285; A9270; J2060; J2405; J7040; 99284

== ENCOUNTER 2018-07-25 10:51 | Day surgery (SDC) | payer BC ==
[2018-07-25] MEDS ORDERED: Propofol 200 MG/20 ML SDV ONE ×2 (11:55→13:35)
[2018-07-25] MEDS ORDERED: fentaNYL 100 MCG/2 ML SDV ONE ×2 (11:56→14:01)
[2018-07-25] MEDS ORDERED: Midazolam 1 MG/ML 2 ML SDV ONE (11:56)
[2018-07-25] MEDS ORDERED: Lidocaine 2% 5 ML SDV ONE ×2 (11:56→12:08)
--- NOTE | 2018-07-25 12:02 | PCM.PREANE ---
Preanesthetic Assessment - Anesthesia/Transfusion/Family Hx Anesthesia History: Prior Anesthesia Reaction Other Type of Anesthesia Reaction Comment: hx: Nausea, with Hysterectomy many transufsions and tough Family History of Anesthesia Reaction: No Transfusion History: Prior Transfusion Without Reaction Intubation History: Unknown - Review of Systems General: No Symptoms Pulmonary: No Symptoms Cardiovascular: No Symptoms Gastrointestinal: No Symptoms Neurological: No Symptoms (pain down both legs), Other Other: Reports: None - Physical Assessment Height: 1.65 m Weight: 103.873 kg ASA Class: 3 Mental Status: Alert & Oriented x3 Airway Class: Mallampati = 2 Dentition: Reports: Normal Dentition, Implants (x1 upper left) Thyro-Mental Finger Breadths: 3 Mouth Opening Finger Breadths: 2 ROM/Head Extension: Limited/Partial Lungs: Clear to Auscultation, Normal Respiratory Effort Cardiovascular: Regular Rate, Regular Rhythm - Allergies Allergies/Adverse Reactions: Allergies Allergy/AdvReac Type Severity Reaction Status Date / Time shellfish derived Allergy Hives Verified 07/21/18 15:55 - Blood Blood Available: No - Anesthesia Plan Pre-Op Medication Ordered: None - Acknowledgements Anesthesia Type Planned: MAC Pt an Appropriate Candidate for the Planned Anesthesia: Yes Alternatives and Risks of Anesthesia Discussed w Pt/Guardian: Yes Pt/Guardian Understands and Agrees with Anesthesia Plan: Yes PreAnesthesia Questionnaire - Past Health History Medical/Surgical History: Denies Medical/Surgical History HEENT History: Reports: Allergic Rhinitis, Other (See Below) Other HEENT History: Some diminished hearing 'especially if background noise', wears glasses Cardiovascular History: Reports: SOB on Exertion, Other (See Below) Other Cardiovascular History: takes Lisinopril "to protect kidneys", has LGL, Eiox-Pnrqqj-Qsmbai Syndrome Respiratory History: Reports: Asthma, SOB Other Respiratory History: "mild" asthma, has not used inhaler for a year Gastrointestinal History: Reports: GERD, PUD Other Genitourinary History: "Crystals in urine at times" TOOL SMITH History: Reports: Endometriosis, Musculoskeletal History: Reports: Arthritis, Back Pain, Chronic, Fracture, Neck Pain, Chronic Other Musculoskeletal History: 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 Lots of muscle spasms and take Magnesum supplement to help Neurological History: Reports: Migraines, Other (See Below) Other Neuro History: hx of CRPS, hx of motion sickness Psychiatric History: Reports: Anxiety, Depression Endocrine/Metabolic History: Reports: Diabetes, Type II, Obesity/BMI 30+ Hematologic History: Reports: Blood Transfusion(s) Other Hematologic History: TAke supplements as 'think I am 'B' deficient" And take Magnesium as Aide and Dr. Palmer recommended due to Muscle spasms, "Trouble with Hysterectomy, had 7 blood transfusions" Immunologic History: Reports: None Oncologic (Cancer) History: Reports: None - Infectious Disease History Infectious Disease History: Reports: None - Past Surgical History Head Surgeries/Procedures: Reports: None HEENT Surgical History: Reports: Tonsillectomy Cardiovascular Surgical History: Reports: None GI Surgical History: Reports: Cholecystectomy, Colonoscopy Other GI Surgeries/Procedures: Open Cholecystectomy Female Surgical History: Reports: Section, D&C, Hysterectomy Other Female Surgeries/Procedures: Several D&C's, hx: Endometriosis, Several Uterine ablations, Hysterectomy with large blood loss, believe received 7 transfusions Neurological Surgical History: Reports: Lumbar Spine, Spinal Fusion Musculoskeletal Surgical History: Reports: Arthroscopic Knee, Carpal Tunnel, Knee Replacement, Other (See Below) Other Musculoskeletal Surgeries/Procedures:: Left knee meniscus repair, cyst removed from left foot - SUBSTANCE USE Smoking Status *Q: Former Smoker Tobacco Use Within Last Twelve Months: No Recreational Drug Use History: No - HOME MEDS Home Medications: Home Meds Liraglutide [Victoza] 1.8 mg SQ BRK 05/07/14 [History] Lisinopril [Zestril] 20 mg PO BEDTIME 05/07/14 [History] Omeprazole [Prilosec] 20 mg PO ACBREAKFAST 05/07/14 [History] Albuterol [Ventolin HFA] 1 - 2 puff INH Q4H PRN 09/24/14 [History] Aspirin 81 mg PO DAILY 06/16/16 [History] Multivit-Min/FA/Lycopene/Lut [Sentry Senior Tablet] 1 each PO DAILY 02/16/17 [ History] Naloxegol Oxalate [Movantik] 25 mg PO ACBREAKFAST 02/16/17 [History] buPROPion [Wellbutrin XL] 300 mg PO QAM 02/16/17 [History] oxyCODONE 5 mg PO BID 02/16/17 [History] oxyCODONE ER [OxyCONTIN] 10 mg PO PCLUNCH 02/16/17 [History] Canagliflozin/Metformin HCl [Invokamet Xr 150-1,000 mg Tab] 2 tab PO QAM [History] Cyanocobalamin/FA/Pyridoxine [Folbic] 1 tab PO BID 07/21/18 [History] Fish Oil/Pickering-3 Fatty Acids [Fish Oil 1,000 MG] 8 gm PO DAILY 07/21/18 [History ] Fluticasone/Salmeterol [Advair 250-50 Diskus] 1 puff INH BID PRN 07/21/18 [ History] Insulin Aspart [Novolog Flexpen] 1 unit SQ WITHSNACKS 07/21/18 [History] Insulin Degludec [Tresiba Flextouch U-100] 28 unit SQ QAM 07/21/18 [History] Ketamine HCl in 0.9 % NaCl [Ketamine 10 mg/ml-0.9% NaCl] 0 mg NASBOTH TID PRN [History] Lidocaine 5% [Lidoderm 5%] 1 patch TOP DAILY 07/21/18 [History] Lidocaine/Prilocaine [Lidocaine-Prilocaine Cream] 1 dose TOP TID PRN 07/21/18 [ History] Magnesium Amino Acid Chelate [Magnesium] 100 mg PO DAILY 07/21/18 [History] Metaxalone 800 mg PO TID PRN 07/21/18 [History] Ondansetron [Ondansetron ODT] 4 - 8 mg PO Q6H PRN 07/21/18 [History] Rosuvastatin Calcium 5 mg PO DAILY 07/21/18 [History] Rutin/Hesp/Bioflav/C/Herb#196 [Bioflex] 2 cap PO DAILY 07/21/18 [History] oxyCODONE ER [OxyCONTIN] 10 mg PO Q12H 07/21/18 [History]
[2018-07-25] MEDS ORDERED: Ondansetron 4 MG/2 ML SDV IVPUSH ONE (12:03)
[2018-07-25] MEDS ORDERED: Iopamidol 408 MG/ML 50 ML SDV ONE (12:08)
[2018-07-25] MEDS ORDERED: Famotidine 20 MG/2 ML SDV ONE (12:39)
--- NOTE | 2018-07-25 15:58 | PCM48HPAN ---
Post Anesthesia Note - EVALUATION WITHIN 48HRS OF ANESTHETIC Vital Signs in Normal Range: Yes Patient Participated in Evaluation: Yes Respiratory Function Stable: Yes Airway Patent: Yes Cardiovascular Function Stable: Yes Hydration Status Stable: Yes Pain Control Satisfactory: Yes Nausea and Vomiting Control Satisfactory: Yes Mental Status Recovered: Yes
--- NOTE | 2018-07-25 16:03 | CR ---
EXAMINATION: Thoracic spine HISTORY: Spinous cord stimulator placement COMPARISON: None TECHNIQUE: 13 fluoroscopic images provided FINDINGS/IMPRESSION: Operative control films demonstrate placement of spinal cord stimulator leads pr ojecting over the mid thoracic spine.
--- NOTE | 2018-07-25 22:25 | OR ---
SURGEON: Keily Palmer D.O. DATE OF PROCEDURE: 07/25/2018 OR STAFF PRESENT: 1. Aleshia Gallagher RN. 2. Shayy Charles RN. 3. Libia Velázquez CST. 4. Aleshia Anand CRNA. 5. RT Clayton. WOUND CLASSIFICATION: I. PREOPERATIVE DIAGNOSES: 1. Failed back surgery syndrome. 2. Chronic neuropathic pain. POSTOPERATIVE DIAGNOSES: 1. Failed back surgery syndrome. 2. Chronic neuropathic pain. PROCEDURES PERFORMED: 1. Spinal cord stimulator 16-contact lead placed up to the top of T7 vertebrae on the right. 2. Spinal cord stimulator 16-contact lead placed up to the top of T7 on the left. 3. Fluoroscopic guidance for needle placement. ANESTHESIA: Local with oral Valium for sedation. SCREENING QUESTIONS: The patient answered no to all the following questions: 1. Are you allergic to iodine, Betadine, or latex? 2. Do you have a bleeding disorder? 3. Are you on anti-inflammatories or blood thinners? 4. Are you ? 5. Do you have any current local or systemic infections? 6. Do you have any joint replacements, heart valve replacements or a pacemaker? DESCRIPTION OF PROCEDURE: The patient had the procedure thoroughly explained including risks, benefits, and alternatives. Consent was signed in my clinic indicating understanding and willingness to proceed. The patient presented to [facility] and was escorted to the dressing room to disrobe and change into a hospital gown. Preoperative history and screening were performed by the nurse. Vital signs were taken and stable. The patient was set up with an IV prior to the procedure. The patient was brought back to the procedure room and placed in the prone position on the procedure room table. A pillow was placed under the abdomen in order to flatten the lumbar lordosis. The patient was positioned comfortably and there was no evidence of infection at the sites of needle insertion. The back was prepped with ChloraPrep and sterilely draped. All personnel in the operating room were dressed in appropriate attire including surgical scrubs, head and shoe covers. This was to ensure sterility while in the treatment room. During the time fluoroscopy was in use, all personnel in the operating room wore lead hansen with thyroid collars. Sterile technique was used during the procedure. Prior to the start of the procedure, prophylactic antibiotic was administered IV. Skeletal landmarks were identified under fluoroscopic guidance. At all insertion sites, the skin and soft tissues were anesthetized with 2% lidocaine preservative-free with a sterile 27-gauge 1-1/2 inch needle. The epidural space was entered with a 14-gauge Tuohy epidural needle with loss-of- resistance to wire technique. Under live fluoroscopic guidance, the 8 standard contact lead electrodes were advanced approximately to the midline at the middle of the T7 vertebral body on the left and then the right. No CSF, no heme, no paresthesia were noted. Testing by the neuromodulation clinical specialist revealed appropriate coverage of the patient's normal areas of pain. The leads were then secured to the skin with occlusive dressing. No complications were noted throughout the procedure and vital signs were stable. Then the patient was brought to the recovery room in stable condition. At that time, the patient had additional stimulation patterns programmed which covered all the normal areas of pain. The patient tolerated the procedure well and was released home with postoperative instructions for follow up in the clinic. The patient will fill out a pain diary throughout the week of the spinal cord stimulator trial. Additionally, prior to discharge, postoperative instructions were given to the patient and the patient voiced understanding, including understanding of those signs and symptoms that would require emergency care. PREOPERATIVE PAIN: 8/10. POSTOPERATIVE PAIN: /10. FOLLOWUP: Follow up in the Pain Clinic tomorrow for reprogramming. JOSUE / CHRISTINA /[id number]
== END 2018-07-25 15:45 | disposition home or self-care (01) ==
LOC: MW.SDS 10:51
PROVIDERS: ATTEND Anesthesiology
DX: M96.1 Postlaminectomy syndrome, not elsewhere classified (principal); G89.29 Other chronic pain; M54.5 Low back pain; M51.16 Intervertebral disc disorders with radiculopathy, lumbar region; G57.91 Unspecified mononeuropathy of right lower limb; I10 Essential (primary) hypertension; J45.909 Unspecified asthma, uncomplicated; E11.9 Type 2 diabetes mellitus without complications; E66.9 Obesity, unspecified; Z68.38 Body mass index [BMI] 38.0-38.9, adult; K21.9 Gastro-esophageal reflux disease without esophagitis; F41.9 Anxiety disorder, unspecified; Z87.891 Personal history of nicotine dependence; Z79.4 Long term (current) use of insulin; Z79.899 Other long term (current) drug therapy; Z91.013 Allergy to seafood
CPT/HCPCS: 63650; 76001; C1778; J0690; J2250; J2405; J2704; J3010; Q9966

== ENCOUNTER 2020-11-25 11:37 | Emergency (ER) | payer BC ==
--- NOTE | 2020-11-25 12:14 | EDM.PDOC ---
ED HPI GENERAL MEDICAL PROBLEM - General Chief Complaint: Fever Stated Complaint: FEVER POSSIBLE COVID Time Seen by Provider: 11/25/20 11:45 Source of Information: Reports: Patient History Limitations: Reports: No Limitations - History of Present Illness INITIAL COMMENTS - FREE TEXT/NARRATIVE: 65-year-old female with history of asthma, diabetes presents with constitutional symptoms since early November. She admits to diffuse myalgia, generalized malaise, fevers, chills, anosmia, ageusia, headache, nausea, vomiting, diarrhea, cough with productive sputum with yellow sputum, shortness of breath. She was tested negative for Covid on 11/12/2020. Her is positive for Covid and was recently discharged from the hospital. She denies abdominal pain, dysuria, rash. Over the past week she also notes midsternal chest "burning "sensation, nonradiating, constant, mild. She had a telephone consult with her PCP Dr. Noble, who called in a prescription for dexamethasone 4 mg daily, azithromycin 500 mg for 7 days, promethazine this past . ROS: A 10-point review of systems, other than pertinent positives and negatives as stated per HPI, is otherwise negative Past medical history: No additional pertinent history Past Surgical history: No additional pertinent history Social history: No additional pertinent history Family history: No additional pertinent history PHYSICAL EXAM General: AOx4, GCS = 15, No distress HEENT: dry mucous membrane Neck: supple, no meningismus, no Kernig or Brudzinski Cardiac: S1S2 RRR Respiratory: CTAB, no crackles or rales, no wheezing. No tachypnea, no retractions, no respiratory distress, Abdomen: Soft, nontender, no rebound or guarding, nondistended, no pulsatile mass. Back: nontender Musculoskeletal: NVI distally, no deformity Neuro: No focal deficits, CN 2 - 12 WNL. Lung pain Pain Score (Numeric/FACES): 4 - Related Data Allergies Allergy/AdvReac Type Severity Reaction Status Date / Time shellfish derived Allergy Hives Verified 11/25/20 12:09 Home Meds: Home Meds Liraglutide [Victoza] 1.8 mg SQ BRK 05/07/14 [History] Lisinopril [Zestril] 20 mg PO BEDTIME 05/07/14 [History] Omeprazole [Prilosec] 20 mg PO ACBREAKFAST 05/07/14 [History] Albuterol [Ventolin HFA] 1 - 2 puff INH Q4H PRN 09/24/14 [History] Aspirin 81 mg PO DAILY 06/16/16 [History] Multivit-Min/FA/Lycopen/Lutein [Sentry Senior Tablet] 1 each PO DAILY 02/16/17 [History] Naloxegol Oxalate [Movantik] 25 mg PO ACBREAKFAST 02/16/17 [History] buPROPion [Wellbutrin XL] 300 mg PO QAM 02/16/17 [History] Canagliflozin/Metformin HCl [Invokamet Xr 150-1,000 mg Tab] 2 tab PO QAM 07/21/18 [History] Cyanocobalamin/FA/Pyridoxine [Folbic] 1 tab PO BID 07/21/18 [History] Fish Oil/[place]-3 Fatty Acids [Fish Oil 1,000 MG] 8 gm PO DAILY 07/21/18 [History] Fluticasone Propion/Salmeterol [Advair 250-50 Diskus] 1 puff INH BID PRN 07/21/18 [History] Insulin Aspart [Novolog Flexpen] 1 unit SQ WITHSNACKS 07/21/18 [History] Insulin Degludec [Tresiba Flextouch U-100] 28 unit SQ QAM 07/21/18 [History] Ketamine HCl in 0.9 % NaCl [Ketamine 10 mg/ml-0.9% NaCl] 0 mg NASBOTH TID PRN 07/21/18 [History] Lidocaine 5% [Lidoderm 5%] 1 patch TOP DAILY 07/21/18 [History] Lidocaine/Prilocaine [Lidocaine-Prilocaine Cream] 1 dose TOP TID PRN 07/21/18 [History] Magnesium Amino Acid Chelate [Magnesium] 100 mg PO DAILY 09/14/18 [History] Metaxalone 800 mg PO TID PRN 07/21/18 [History] Ondansetron [Ondansetron ODT] 4 - 8 mg PO Q6H PRN 07/21/18 [History] Rosuvastatin Calcium 5 mg PO DAILY 07/21/18 [History] Rutin/Hesp/Bioflav/C/Dbewcm044 [Bioflex] 2 cap PO DAILY 07/21/18 [History] Doxycycline Monohydrate 100 mg PO BID 10 Days #20 capsule 11/25/20 [Rx] cephALEXin [Keflex] 500 mg PO Q8H #15 cap 11/25/20 [Rx] Past Medical History - Past Health History Medical/Surgical History: Denies Medical/Surgical History HEENT History: Reports: Allergic Rhinitis, Other (See Below) Other HEENT History: Some diminished hearing 'especially if background noise', wears glasses Cardiovascular History: Reports: SOB on Exertion, Other (See Below) Other Cardiovascular History: takes Lisinopril "to protect kidneys", has LGL, Nsaf-Holppe-Hzrnhw Syndrome Respiratory History: Reports: Asthma, SOB Other Respiratory History: "mild" asthma, has not used inhaler for a year Gastrointestinal History: Reports: GERD, PUD Other Genitourinary History: "Crystals in urine at times" [employer]OR[employer]ION [employer]PT[employer] ENGINEER History: Reports: Endometriosis, Musculoskeletal History: Reports: Arthritis, Back Pain, Chronic, Fracture, Neck Pain, Chronic Other Musculoskeletal History: 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 Lots of muscle spasms and take Magnesum supplement to help Neurological History: Reports: Migraines, Other (See Below) Other Neuro History: hx of CRPS, hx of motion sickness Psychiatric History: Reports: Anxiety, Depression Endocrine/Metabolic History: Reports: Diabetes, Type II, Obesity/BMI 30+ Hematologic History: Reports: Blood Transfusion(s) Other Hematologic History: TAke supplements as 'think I am 'B' deficient" And take Magnesium as Pete Palmer recommended due to Muscle spasms, "Trouble with Hysterectomy, had 7 blood transfusions" Immunologic History: Reports: None Oncologic (Cancer) History: Reports: None - Infectious Disease History Infectious Disease History: Reports: None - Past Surgical History Head Surgeries/Procedures: Reports: None HEENT Surgical History: Reports: Tonsillectomy Cardiovascular Surgical History: Reports: None GI Surgical History: Reports: Cholecystectomy, Colonoscopy Other GI Surgeries/Procedures: Open Cholecystectomy Female Surgical History: Reports: Section, D&C, Hysterectomy Other Female Surgeries/Procedures: Several D&C's, hx: Endometriosis, Several Uterine ablations, Hysterectomy with large blood loss, believe received 7 transfusions Neurological Surgical History: Reports: Lumbar Spine, Spinal Fusion Musculoskeletal Surgical History: Reports: Arthroscopic Knee, Carpal Tunnel, Knee Replacement, Other (See Below) Other Musculoskeletal Surgeries/Procedures:: Left knee meniscus repair, cyst removed from left foot Social & Family History - Family History Family Medical History: No Pertinent Family History Neurological: Reports: CVA ED ROS GENERAL - Review of Systems Review Of Systems: See Below ED EXAM, GENERAL - Physical Exam Exam: See Below (see dictation) #1 Interpretation EKG Interpretation Comments: 69bpm, NSR, normal QRS interval, no STEMI. EKG and rhythm strip interpreted by me at 1210 Course - Vital Signs Last Recorded V/S: Last Vital Signs Temp 99.1 F 11/25/20 12:11 Pulse 64 11/25/20 12:11 Resp 18 11/25/20 12:11 BP 132/72 11/25/20 12:11 Pulse Ox 97 11/25/20 12:11 - Orders/Labs/Meds Orders: Active Orders 24 hr Category Date Time Status Cardiac Monitoring [RC] . DIRECTED Care 11/25/20 12:02 Active EKG Documentation Completion [RC] STAT Care 11/25/20 12:03 Active CULTURE BLOOD [BC] Stat Lab 11/25/20 12:27 Received CULTURE BLOOD [BC] Stat Lab 11/25/20 12:30 Received PROCALCITONIN [REF] Stat Lab 11/25/20 12:27 Received Blood Culture x2 Reflex Set [OM.PC] Stat Oth 11/25/20 12:04 Ordered Isolation [COMM] Routine Oth 11/25/20 12:04 Active Labs: Laboratory Tests 11/25/20 11/25/20 11/25/20 Range/Units 12:27 12:27 12:27 WBC (4.0-11.0) K/uL RBC (4.30-5.90) M/uL Hgb (12.0-16.0) g/dL Hct (36.0-46.0) % MCV (80.0-98.0) fL MCH (27.0-32.0) pg MCHC (31.0-37.0) g/dL RDW Std Deviation (28.0-62.0) fl RDW Coeff of Elida (11.0-15.0) % Plt Count (150-400) K/uL MPV (7.40-12.00) fL Neut % (Auto) (48.0-80.0) % Lymph % (Auto) (16.0-40.0) % Tama % (Auto) (0.0-15.0) % Eos % (Auto) (0.0-7.0) % Baso % (Auto) (0.0-1.5) % Neut # (Auto) (1.4-5.7) K/uL Lymph # (Auto) (0.6-2.4) K/uL Tama # (Auto) (0.0-0.8) K/uL Eos # (Auto) (0.0-0.7) K/uL Baso # (Auto) (0.0-0.1) K/uL Nucleated RBC % /100WBC Nucleated RBCs # K/uL INR 0.95 APTT 23.3 (18.6-31.3) SEC D-Dimer, Quantitative (0.0-0.50) mg/L FEU Lactate (0.20-2.00) mmol/L Sodium 141 (136-145) mmol/L Potassium 4.0 (3.5-5.1) mmol/L Chloride 102 (98-107) mmol/L Carbon Dioxide 31.6 (21.0-32.0) mmol/L BUN 25 H (7.0-18.0) mg/dL Creatinine 0.7 (0.6-1.0) mg/dL Est Cr Clr Drug Dosing 73.06 mL/min Estimated GFR (MDRD) > 60.0 ml/min Glucose 97 (74-106) mg/dL Calcium 10.0 (8.5-10.1) mg/dL Ferritin 78 (8-252) ng/mL Total Bilirubin 0.5 (0.2-1.0) mg/dL Direct Bilirubin 0.10 (0.0-0.5) mg/dL Indirect Bilirubin 0.40 AST 12 L (15-37) IU/L ALT 26 (14-63) IU/L Alkaline Phosphatase 86 (46-116) U/L Lactate Dehydrogenase 188 (81-234) U/L Creatine Kinase 34 (26-308) U/L Troponin I < 0.050 (0.000-0.056) ng/mL C-Reactive Protein < 0.20 (0.00-0.90) mg/dL B-Natriuretic Peptide (<100) PG/ML Total Protein 8.1 (6.4-8.2) g/dL Albumin 3.9 (3.4-5.0) g/dL Globulin 4.2 H (2.6-4.0) g/dL Albumin/Globulin Ratio 0.9 (0.9-1.6) Influenza Type A RNA (NEGATIVE) Influenza Type B RNA (NEGATIVE) SARS-CoV-2 RNA (KALE) (NEGATIVE) 11/25/20 11/25/20 11/25/20 Range/Units 12:27 12:27 12:27 WBC 10.88 (4.0-11.0) K/uL RBC 5.02 (4.30-5.90) M/uL Hgb 15.6 (12.0-16.0) g/dL Hct 49.1 H (36.0-46.0) % MCV 97.8 (80.0-98.0) fL MCH 31.1 (27.0-32.0) pg MCHC 31.8 (31.0-37.0) g/dL RDW Std Deviation 49.0 (28.0-62.0) fl RDW Coeff of Elida 14 (11.0-15.0) % Plt Count 336 (150-400) K/uL MPV 10.30 (7.40-12.00) fL Neut % (Auto) 58.3 (48.0-80.0) % Lymph % (Auto) 29.3 (16.0-40.0) % Tama % (Auto) 11.6 (0.0-15.0) % Eos % (Auto) 0.6 (0.0-7.0) % Baso % (Auto) 0.2 (0.0-1.5) % Neut # (Auto) 6.4 H (1.4-5.7) K/uL Lymph # (Auto) 3.2 H (0.6-2.4) K/uL Tama # (Auto) 1.3 H (0.0-0.8) K/uL Eos # (Auto) 0.1 (0.0-0.7) K/uL Baso # (Auto) 0.0 (0.0-0.1) K/uL Nucleated RBC % 0.0 /100WBC Nucleated RBCs # 0 K/uL INR APTT (18.6-31.3) SEC D-Dimer, Quantitative 2.58 H (0.0-0.50) mg/L FEU Lactate 1.5 (0.20-2.00) mmol/L Sodium (136-145) mmol/L Potassium (3.5-5.1) mmol/L Chloride (98-107) mmol/L Carbon Dioxide (21.0-32.0) mmol/L BUN (7.0-18.0) mg/dL Creatinine (0.6-1.0) mg/dL Est Cr Clr Drug Dosing mL/min Estimated GFR (MDRD) ml/min Glucose (74-106) mg/dL Calcium (8.5-10.1) mg/dL Ferritin (8-252) ng/mL Total Bilirubin (0.2-1.0) mg/dL Direct Bilirubin (0.0-0.5) mg/dL Indirect Bilirubin AST (15-37) IU/L ALT (14-63) IU/L Alkaline Phosphatase (46-116) U/L Lactate Dehydrogenase (81-234) U/L Creatine Kinase (26-308) U/L Troponin I (0.000-0.056) ng/mL C-Reactive Protein (0.00-0.90) mg/dL B-Natriuretic Peptide (<100) PG/ML Total Protein (6.4-8.2) g/dL Albumin (3.4-5.0) g/dL Globulin (2.6-4.0) g/dL Albumin/Globulin Ratio (0.9-1.6) Influenza Type A RNA (NEGATIVE) Influenza Type B RNA (NEGATIVE) SARS-CoV-2 RNA (KALE) (NEGATIVE) 11/25/20 11/25/20 Range/Units 12:27 12:44 WBC (4.0-11.0) K/uL RBC (4.30-5.90) M/uL Hgb (12.0-16.0) g/dL Hct (36.0-46.0) % MCV (80.0-98.0) fL MCH (27.0-32.0) pg MCHC (31.0-37.0) g/dL RDW Std Deviation (28.0-62.0) fl RDW Coeff of Elida (11.0-15.0) % Plt Count (150-400) K/uL MPV (7.40-12.00) fL Neut % (Auto) (48.0-80.0) % Lymph % (Auto) (16.0-40.0) % Tama % (Auto) (0.0-15.0) % Eos % (Auto) (0.0-7.0) % Baso % (Auto) (0.0-1.5) % Neut # (Auto) (1.4-5.7) K/uL Lymph # (Auto) (0.6-2.4) K/uL Tama # (Auto) (0.0-0.8) K/uL Eos # (Auto) (0.0-0.7) K/uL Baso # (Auto) (0.0-0.1) K/uL Nucleated RBC % /100WBC Nucleated RBCs # K/uL INR APTT (18.6-31.3) SEC D-Dimer, Quantitative (0.0-0.50) mg/L FEU Lactate (0.20-2.00) mmol/L Sodium (136-145) mmol/L Potassium (3.5-5.1) mmol/L Chloride (98-107) mmol/L Carbon Dioxide (21.0-32.0) mmol/L BUN (7.0-18.0) mg/dL Creatinine (0.6-1.0) mg/dL Est Cr Clr Drug Dosing mL/min Estimated GFR (MDRD) ml/min Glucose (74-106) mg/dL Calcium (8.5-10.1) mg/dL Ferritin (8-252) ng/mL Total Bilirubin (0.2-1.0) mg/dL Direct Bilirubin (0.0-0.5) mg/dL Indirect Bilirubin AST (15-37) IU/L ALT (14-63) IU/L Alkaline Phosphatase (46-116) U/L Lactate Dehydrogenase (81-234) U/L Creatine Kinase (26-308) U/L Troponin I (0.000-0.056) ng/mL C-Reactive Protein (0.00-0.90) mg/dL B-Natriuretic Peptide 19 (<100) PG/ML Total Protein (6.4-8.2) g/dL Albumin (3.4-5.0) g/dL Globulin (2.6-4.0) g/dL Albumin/Globulin Ratio (0.9-1.6) Influenza Type A RNA NEGATIVE (NEGATIVE) Influenza Type B RNA NEGATIVE (NEGATIVE) SARS-CoV-2 RNA (KALE) POSITIVE H (NEGATIVE) Meds: Medications Discontinued Medications Generic Name Dose Route Start Last Admin Trade Name Freq PRN Reason Stop Dose Admin Iopamidol 100 ml 11/25/20 14:37 11/25/20 14:42 Isovue Multipack-370 (76%) IVPUSH 11/25/20 14:38 100 ml ONETIME STA Administration - Re-Assessments/Exams Free Text/Narrative Re-Assessment/Exam: 11/25/20 15:20 She is currently stable for discharge. I performed a repeat exam and did not appreciate new abnormal findings. Patient exhibits normal vital signs and has a normal gait on road test. I advised the patient to return to the ER for reevaluation if symptoms worsened, including fever, worsening pain, or any other worrisome symptoms. I instructed the patient to follow up with their PCP within 2-3 days. MEDICAL DECISION MAKING: I reviewed the patients past medical records, lab and radiographic findings. I discussed the case with the patient. My differential diagnosis included: Covid, pneumonia, ARDS, atypical chest pain. CT chest demonstrated pneumonia, she is already on day 5 of azithromycin, instructed to continue her azithromycin, will add on Keflex and doxycycline. She is already on dexamethasone. She does not require supplemental oxygen. I do not suspect need for hospitalization. She has no tachypnea, no retractions, no hypoxia. She is amendable for outpatient antibiotic treatment. This patient was evaluated for symptoms concerning for Covid. They were evaluated in the context of the global COVID-19 pandemic, which necessitated consideration that the patient might be at risk for infection with the SARS-CoV-2 virus that causes COVID-19. Institutional protocols and algorithms that pertain to the evaluation of patients at risk for COVID-19 are in a state of rapid change based on information released by regulatory bodies including the CDC and federal and state organizations. These policies and algorithms were followed during the patient's care. I wore full PPE, N95, face shield, gown and gloves throughout my evaluation and care of this patient. I recommended home isolation. given home isolation instructions. The patient is well appearing, not in respiratory distress, not hypoxic, no tachyneia, no retractions. I instructed patient to return immediately for worsening symptoms, sob, chest pain, lightheadedness or other concerns. Patient voiced understanding and questions answered. Departure - Departure Time of Disposition: 15:21 Disposition: Home, Self-Care 01 Condition: Good Clinical Impression: COVID-19, Pneumonia - Discharge Information *PRESCRIPTION DRUG MONITORING PROGRAM REVIEWED*: Not Applicable *COPY OF PRESCRIPTION DRUG MONITORING REPORT IN PATIENT NICKY: Not Applicable Prescriptions: Doxycycline Monohydrate 100 mg PO BID 10 Days #20 capsule cephALEXin [Keflex] 500 mg PO Q8H #15 cap Instructions: COVID-19 Frequently Asked Questions, COVID-19, COVID-19: How to Protect Yourself and Others - CDC, Community-Acquired Pneumonia, Adult Referrals: Nikia Noble DO [Ordering Only Provider] - 3 Days Forms: ED Department Discharge Additional Instructions: The need for follow-up, as well as the timing and circumstances, are variable depending upon the specifics of your emergency department visit. If you don't have a primary care physician on staff, we will provide you with a referral. We always advise you to contact your personal physician following an emergency department visit to inform them of the circumstance of the visit and for follow-up with them and/or the need for any referrals to a consulting specialist. The emergency department will also refer you to a specialist when appropriate. This referral assures that you have the opportunity for follow-up care with a specialist. All of these measure are taken in an effort to provide you with optimal care, which includes your follow-up. Under all circumstances we always encourage you to contact your private physician who remains a resource for coordinating your care. When calling for follow-up care, please make the office aware that this follow-up is from your recent emergency room visit. If for any reason you are refused follow-up, please contact the [facility] Emergency Department at and asked to speak to the emergency department charge nurse. If you do not have a primary care doctor, please follow up with the [facility] within 3-5 days. [facility] - Primary Care [address] [place] [id number] [facility] [address] [place] [id number] Sepsis Event Note (ED) - Focused Exam Vital Signs: Vital Signs Temp Pulse Resp BP Pulse Ox 11/25/20 12:11 99.1 F 64 18 132/72 97 - My Orders Last 24 Hours: My Active Orders 11/25/20 12:02 Cardiac Monitoring [RC] . DIRECTED 11/25/20 12:03 EKG Documentation Completion [RC] STAT 11/25/20 12:04 Blood Culture x2 Reflex Set [OM.PC] Stat Isolation [COMM] Routine 11/25/20 12:27 CULTURE BLOOD [BC] Stat PROCALCITONIN [REF] Stat 11/25/20 12:30 CULTURE BLOOD [BC] Stat - Assessment/Plan Last 24 Hours: My Active Orders 11/25/20 12:02 Cardiac Monitoring [RC] . DIRECTED 11/25/20 12:03 EKG Documentation Completion [RC] STAT 11/25/20 12:04 Blood Culture x2 Reflex Set [OM.PC] Stat Isolation [COMM] Routine 11/25/20 12:27 CULTURE BLOOD [BC] Stat PROCALCITONIN [REF] Stat 11/25/20 12:30 CULTURE BLOOD [BC] Stat
[2020-11-25 12:16] VITALS: BP 132/72; PULSE 64
--- NOTE | 2020-11-25 13:02 | CR ---
INDICATION: Chest pain. TECHNIQUE: Chest 1 view. COMPARISON: Chest radiograph 08/19/2017. FINDINGS: The cardiomediastinal silhouette size is normal. There is no focal pulmonary opacity, pleural effusion or pneumothorax. The visualized osseous structures are unremarkable for age. There is a 5 by 0.7 cm metallic object overlying the midthoracic spine which may be external to the patient. Impression: No acute cardiopulmonary abnormality. Dictated by Rain De Oliveira MD @ Nov 25 2020 12:59PM Signed by Dr. Rain De Oliveira @ Nov 25 2020 1:02PM
[2020-11-25 13:17] LABS: BLOOD UREA NITROGEN,BUN 25 mg/dL (7.0-18.0); CARBON DIOXIDE,CO2 31.6 mmol/L (21.0-32.0); CHLORIDE,CL 102 mmol/L (98-107); GLUCOSE RANDOM 97 mg/dL (74-106); SODIUM,NA 141 mmol/L (136-145)
[2020-11-25 13:30] LABS: CORONAVIRUS COVID-19 NAA POSITIVE (NEGATIVE); INFLUENZA A NAA NEGATIVE (NEGATIVE); INFLUENZA B NAA NEGATIVE (NEGATIVE)
[2020-11-25] MEDS ORDERED: Iopamidol 755 MG/ML 500 ML Multipack Bottle IVPUSH STA (14:37)
--- NOTE | 2020-11-25 15:11 | CT ---
INDICATION: Cough, fever, elevated D-dimer, COVID positive TECHNIQUE: CT chest pulmonary PE protocol acquired with 100 cc Isovue 370 IV contrast. COMPARISON: Chest radiograph from same date FINDINGS: Cardiovascular structures: Normal vascular enhancement of the pulmonary arteries, no sign of pulmonary embolism. Heart size is normal. No sign of aneurysm in the thoracic aorta. Mediastinum and kristin: No mass or adenopathy. Lungs: Patchy airspace opacity in the bilateral upper and right middle lobes. Pleura and pericardium: No effusions. Chest wall and axilla: No mass or adenopathy. Upper abdomen: Unremarkable. Bones: There is a neurostimulator device in the spinal canal. IMPRESSION: No pulmonary embolism. Patchy airspace opacity in the bilateral upper and right middle lobes, concerning for infection. The appearance is not typical for COVID-19 and this could represent a bacterial infection. Neurostimulator device in the spinal canal. Please note that all CT scans at this facility use dose modulation, iterative reconstruction, and/or weight-based dosing when appropriate to reduce radiation dose to as low as reasonably achievable. Dictated by Lorna Whyte MD @ Nov 25 2020 3:08PM Signed by Dr. Lorna Whyte @ Nov 25 2020 3:08PM
== END 2020-11-25 16:02 | disposition home or self-care (01) ==
LOC: MW.ED 11:37
DX: U07.1 COVID-19 (principal); J12.82 Pneumonia due to coronavirus disease 2019; J45.909 Unspecified asthma, uncomplicated; E11.9 Type 2 diabetes mellitus without complications; M19.90 Unspecified osteoarthritis, unspecified site; K21.9 Gastro-esophageal reflux disease without esophagitis; E66.9 Obesity, unspecified; Z79.82 Long term (current) use of aspirin; Z79.4 Long term (current) use of insulin; Z79.899 Other long term (current) drug therapy; Z91.013 Allergy to seafood; Z68.31 Body mass index [BMI] 31.0-31.9, adult
CPT/HCPCS: 0240U; 36415; 71045; 71275; 80048; 80076; 82550; 82728; 83605; 83615; 83880; 84145; 84484; 85025; 85379; 85610; 85730; 86140; 87040; 93005; 99284; Q9967; 93010

== ENCOUNTER 2022-04-08 06:18 | Day surgery (SDC) | payer MEDICARE, OTHER ==
[~2022-04-08 06:18] MED LIST changes: -Betamethasone Acetate/Betamethasone Sod Phosphate 30 MG/5 ML MDV ONE; -Iopamidol 408 MG/ML 50 ML SDV ONE; +Lactated Ringers 1,000 ML IV SCH; -Lidocaine 2% 5 ML SDV ONE; -Ropivacaine 0.5% 5 MG/ML 30 ML SDV ONE; +Sodium Chloride 0.9% 10 ML Syringe FLUSH PRN; +Sodium Chloride 0.9% 2.5 ML Syringe FLUSH PRN; +Sodium Chloride 0.9% 20 ML SDV IV PRN
[2022-04-08] MEDS ORDERED: Lidocaine 2% 5 ML SDV ONE (07:24)
[2022-04-08] MEDS ORDERED: Propofol 200 MG/20 ML SDV ONE (07:24)
[2022-04-08] MEDS ORDERED: fentaNYL 100 MCG/2 ML SDV ONE (07:24)
[2022-04-08] MEDS ORDERED: Ketamine 500 mg/10 ML MDV ONE (08:14)
[2022-04-08] MEDS ORDERED: ePHEDrine 50 MG/ML SDV ONE (08:30)
[2022-04-08 09:16] VITALS: BP 97/69; PULSE 80
== END 2022-04-08 09:32 | disposition home or self-care (01) ==
LOC: MW.SDS 06:18
PROVIDERS: ATTEND Surgery
DX: D12.3 Benign neoplasm of transverse colon (principal); D12.0 Benign neoplasm of cecum; K57.30 Diverticulosis of large intestine without perforation or abscess without bleeding; K29.70 Gastritis, unspecified, without bleeding; K44.9 Diaphragmatic hernia without obstruction or gangrene; F41.9 Anxiety disorder, unspecified; J45.909 Unspecified asthma, uncomplicated; F32.A Depression, unspecified; K21.9 Gastro-esophageal reflux disease without esophagitis; I10 Essential (primary) hypertension; M10.9 Gout, unspecified; E11.9 Type 2 diabetes mellitus without complications; E66.9 Obesity, unspecified; Z91.013 Allergy to seafood; Z79.82 Long term (current) use of aspirin; Z79.899 Other long term (current) drug therapy; Z98.890 Other specified postprocedural states; Z87.891 Personal history of nicotine dependence; Z68.33 Body mass index [BMI] 33.0-33.9, adult; Z90.49 Acquired absence of other specified parts of digestive tract
CPT/HCPCS: 43239; 45380; J2704; J3490; J7120; 00813; J3010

== ENCOUNTER 2024-03-01 12:30 | Emergency (ER) | payer MEDICARE, OTHER ==
[2024-03-01] MEDS: Albuterol/Ipratropium 3.0-0.5 MG/3 ML Neb Soln NEB ONE (12:58)
[2024-03-01] MEDS: Sodium Chloride 0.9% 1,000 ML IV ONE (12:58)
[2024-03-01 13:07] LABS: BASOPHILS ABSOLUTE AUTO 0.05 K/uL (0.00-0.20); BASOPHILS PERCENT AUTO 0.4 % (0.0-1.0); EOSINOPHILS ABSOLUTE AUTO 0.28 K/uL (0.00-0.45); EOSINOPHILS PERCENT AUTO 2.3 % (0.0-6.0); HEMATOCRIT 45.8 % (37.0-47.0); HEMOGLOBIN 14.8 g/dL (12.0-16.0); IMMATURE GRAN ABSOLUTE AUTO 0.07 K/uL (0.00-0.05); IMMATURE GRAN PERCENT AUTO 0.6 % (0.0-0.4); LYMPHOCYTES ABSOLUTE AUTO 2.82 K/uL (1.00-4.80); LYMPHOCYTES PERCENT AUTO 22.9 % (24.0-44.0); MEAN CORPUSCULAR HEMOGLOBIN 30.1 pg (28.0-32.0); MEAN CORPUSCULAR HGB CONC 32.3 g/dL (32.0-36.0); MEAN CORPUSCULAR VOLUME 93.1 fL (83.0-99.0); MEAN PLATELET VOLUME 9.8 fL (9.4-12.3); MONOCYTES ABSOLUTE AUTO 1.31 K/uL (0.00-0.80); MONOCYTES PERCENT AUTO 10.7 % (0.0-8.0); NEUTROPHILS ABSOLUTE AUTO 7.77 K/uL (1.80-7.70); NEUTROPHILS PERCENT AUTO 63.1 % (41.0-71.0); PLATELET COUNT,PLT 446 K/uL (150-400); RED BLOOD CELL COUNT 4.92 M/uL (4.10-5.30)
[2024-03-01 13:54] LABS: A/G RATIO 0.9 (0.9-1.6); ALBUMIN 3.5 g/dL (3.4-5.0); BILIRUBIN TOTAL 0.8 mg/dL (0.2-1.0); CALCIUM 9.2 mg/dL (8.5-10.1); CARBON DIOXIDE,CO2 27.4 mmol/L (21.0-32.0); CREATININE 0.7 mg/dL (0.6-1.0); EST CRCL DRUG DOSING (CG) 70.18 mL/min; POTASSIUM,K 4.7 mmol/L (3.5-5.1); PROTEIN TOTAL,TP 7.4 g/dL (6.4-8.2); TSH ULTRASENSITIVE 2.35 uIU/mL (0.36-3.74)
[2024-03-01 14:36] LABS: APPEARANCE,URINE CLEAR; BILIRUBIN,URINE NEGATIVE (NEGATIVE); COLOR,URINE YELLOW; GLUCOSE,URINE NEGATIVE (NEGATIVE); KETONES,URINE NEGATIVE (NEGATIVE); LEUKOCYTE ESTERASE,URINE NEGATIVE (NEGATIVE); NITRITE,URINE NEGATIVE (NEGATIVE); OCCULT BLOOD,URINE NEGATIVE (NEGATIVE); PH,URINE 5.5 (5.0-8.0); PROTEIN,URINE NEGATIVE (NEGATIVE); UROBILINOGEN,URINE 0.2 EU/dL (<2.0)
[2024-03-01 15:03] VITALS: BP 129/83; PULSE 69
== END 2024-03-01 15:01 | disposition home or self-care (01) ==
LOC: MW.ED 12:30
DX: J40 Bronchitis, not specified as acute or chronic (principal); E11.9 Type 2 diabetes mellitus without complications; Z75.8 Other problems related to medical facilities and other health care; Z91.011 Allergy to milk products; Z79.51 Long term (current) use of inhaled steroids; Z86.19 Personal history of other infectious and parasitic diseases; Z86.16 Personal history of COVID-19; Z79.4 Long term (current) use of insulin; Z79.82 Long term (current) use of aspirin; Z79.899 Other long term (current) drug therapy
CPT/HCPCS: 36415; 71045; 80053; 81003; 84443; 84484; 85025; 86308; 93005; 96360; 99285; J7030; 93010; 99283; J7620-GY

== ENCOUNTER 2025-05-16 08:06 | Day surgery (SDC) | payer MEDICARE, OTHER ==
[~2025-05-16 08:06] MED LIST changes: -Lactated Ringers 1,000 ML IV SCH; -Sodium Chloride 0.9% 20 ML SDV IV PRN; +propofoL 500 MG/50 ML 50 ML ONE
[2025-05-16] MEDS: Lactated Ringers 1,000 ML IV SCH (08:51)
[2025-05-16 13:04] VITALS: BP 146/74; PULSE 63
== END 2025-05-16 12:08 | disposition home or self-care (01) ==
LOC: MW.SDS 08:06
PROVIDERS: ATTEND Surgery
DX: Z12.11 Encounter for screening for malignant neoplasm of colon (principal); D12.3 Benign neoplasm of transverse colon; K62.1 Rectal polyp; K57.30 Diverticulosis of large intestine without perforation or abscess without bleeding; E11.9 Type 2 diabetes mellitus without complications; K21.9 Gastro-esophageal reflux disease without esophagitis; I10 Essential (primary) hypertension; Z79.82 Long term (current) use of aspirin; Z79.899 Other long term (current) drug therapy; Z87.891 Personal history of nicotine dependence
CPT/HCPCS: 45380; 88305; J2003; J2704; J7120; 00811